=== PATIENT | male | born 1955 | race Caucasian/White ===

== ENCOUNTER → 2017-02-15 | Outpatient (CLI) | payer OTHER ==
--- NOTE | 2017-02-22 15:02 | P.ARTDOP ---
Arterial Doppler LOWER EXTREMITY ARTERIAL DOPPLER: DATE OF SERVICE: 02/15/2017 Reason for study: Claudication. Doppler waveforms: Multiphasic bilaterally throughout. Pulse volume recording: Normal configuration. Pressure gradients: None. Ankle-brachial indices: Greater than 1 bilaterally. Toe pressures: 108 on the right, 108 on the left Impression: Normal study, symptoms are unlikely to be vascular in origin..
== END | disposition home or self-care (01) ==
LOC: RADUSWWP 10:15
PROVIDERS: ATTEND Family Medicine
DX: I73.9 Peripheral vascular disease, unspecified (principal)
CPT/HCPCS: 93923

== ENCOUNTER → 2017-04-10 | Outpatient (CLI) | payer OTHER ==
--- NOTE | 2017-04-10 12:26 | MR ---
EXAMINATION TYPE: MR lumbar spine wo con DATE OF EXAM: 04/10/2017 11:27 AM COMPARISON: NONE HISTORY: intervertebral disc disorder Multiplanar, MultiSpin echo imaging of the lumbar spine was performed. T12-L1: Borderline disc desiccation. Small left paracentral disc bulge without mani herniation. Fora tyrell are patent. No evidence for central stenosis or foraminal encroachment. L1-L2: Normal disc appearance without desiccation. No herniation, protrusion or disc bulging. No ca nal stenosis is present. Foramina are patent bilaterally. L2-L3: Normal disc appearance without desiccation. No herniation, protrusion or disc bulging. No ca nal stenosis is present. Foramina are patent bilaterally. L3-L4: Normal disc appearance without desiccation. No herniation, protrusion or disc bulging. No ca nal stenosis is present. Foramina are patent bilaterally. L4-L5: Mild disc desiccation noted. Mild posterocentral subligamentous disc herniation with mild effa cement of the ventral thecal sac. No evidence for central stenosis. Mild intermittent left lateral re cess stenosis suspected. L5-S1: Normal disc appearance without desiccation. No herniation, protrusion or disc bulging. No ca nal stenosis is present. Foramina are patent bilaterally. Lumbar segments are intact. No paraspinal masses are identified. Conus medullaris has a normal appe arance. IMPRESSION: 1. Small subligamentous disc herniation at L3-4-5 with probable left lateral recess stenosis.
== END | disposition home or self-care (01) ==
LOC: RADMRIMAIN 10:27
PROVIDERS: ATTEND Family Medicine
DX: M51.16 Intervertebral disc disorders with radiculopathy, lumbar region (principal)
CPT/HCPCS: 72148

== ENCOUNTER 2018-03-05 08:36 | Inpatient (IN) | payer OTHER ==
[2018-02-23 09:03] VITALS: BMI 36.6
--- NOTE | 2018-03-04 13:32 | HP ---
HISTORY AND PHYSICAL DATE OF ADMISSION: Surgery scheduled for 03/05/2018 Poncho Iniguez is a 63-year-old patient seen with progressive left knee pain. We discussed consistent with symptomatic osteoarthritis. We discussed treatment options. He elected to proceed with total knee arthroplasty. Consent was obtained. Medical clearance was provided by Dr. Hatfield. PAST MEDICAL HISTORY: Hyperlipidemia and hypertension. PAST SURGICAL HISTORY: Partial amputation right middle finger. MEDICATIONS: Vytorin, [place], Atenolol. ALLERGIES: None reported. SOCIAL HISTORY: Patient smokes occasional cigars. PHYSICAL EXAMINATION: Evaluation of the left knee is range of motion is -2/3 to 115 degrees. There is a mild effusion. Tenderness along the medial and lateral joint lines. Positive lateral Estefany's. Crepitus along the lateral and patellofemoral compartments. Range of motion. Pain with patellofemoral compression. Genu valgum deformity. Distal neurovascular exam intact. Painless rotation of the hip. RADIOGRAPHS: Radiographs of the left knee reveal severe lateral, moderate patellofemoral compartment osteoarthritis. IMPRESSION: 1. Left knee osteoarthritis. 2. Hypertension. 3. Hyperlipidemia. PLAN: Left total knee arthroplasty. Surgery scheduled for 03/05/2018. MMODL / IJN: [id number] /
[~2018-03-05 08:36] MED LIST: ACETAMINOPHEN TAB 500 MG TAB PO ONE; DEXAMETHASONE SOD PHOSPHATE 10 MG/ML 1 ML VIAL IV ONE; LACTATED RINGERS 1,000 ML IV SCH; LIDOCAINE 1% 20 ML VIAL (10MG/ML) FOR IV START INTRADERMA PRN; MELOXICAM 7.5 MG TAB PO ONE; MIDAZOLAM 2 MG/2 ML VIAL IV PRN; MORPHINE SULFATE 4 MG/ML SYRINGE IV PRN; ONDANSETRON 4 MG/2 ML VIAL IVP ONE; TRANEXAMIC ACID 1,000 MG in SODIUM CHLORIDE 0.9% 50 ML IVPB ONE; ceFAZolin IN SWFI 2 GM/20 ML SYRINGE IVP ONE
[2018-03-05] MEDS ORDERED: ROPIVACAINE 246.25 MG, EPINEPHrine 0.5 MG, KETOROLAC 30 MG, cloNIDine HCL/PF 80 MCG, WA... MISCELLANE ONE ×5 (09:32)
[2018-03-05] MEDS ORDERED: LIDOCAINE 1% INJ 10MG/ML (20 ML MDV) ONE ×2 (10:08→10:13)
[2018-03-05] MEDS ORDERED: MIDAZOLAM 2 MG/2 ML VIAL ONE (10:13)
[2018-03-05] MEDS ORDERED: TRANEXAMIC ACID 1,000 MG/10 ML VIAL ONE (10:13)
[2018-03-05] MEDS ORDERED: fentaNYL (PF) 50 MCG/ML 2 ML AMP ONE (10:13)
[2018-03-05] MEDS ORDERED: PROPOFOL 10 MG/ML 20 ML VIAL IV ONE (10:13)
[2018-03-05] MEDS ORDERED: SODIUM CHLORIDE 0.9% 100 ML BAG ONE (10:13)
[2018-03-05] MEDS ORDERED: LACTATED RINGERS 1,000 ML IV ONE (10:47)
[2018-03-05] MEDS ORDERED: ceFAZolin 3,000 MG in SODIUM CHLORIDE 0.9% IRRIGATIO 3,000 ML IRRIGATION ONE (11:15)
[2018-03-05] MEDS ORDERED: ROPIVACAINE 1,100 MG, SODIUM CHLORIDE 0.9% 330 ML MISCELLANE PRN ×2 (11:42)
--- NOTE | 2018-03-05 11:44 | P.ONQ ---
Anesthesiology Proc Note - PNB - Peripheral Nerve Block Performed Left Adductor Canal Infusion Time Out Performed: Yes Procedure Start Time: 09:33 Procedure Stop Time: :54 Indication: Acute Post-Operative Pain, Requested by physician Sedation Type: Sedate with meaningful contact maintained Preparation: Sterile Dressing Position: Supine Catheter: Indwelling Needle Types: On-Q Needle Size: 100mm (4") Needle Gauge: 21 Technique: Ultrasound Injectate: 0.5% Ropivacaine (see comment for volume) (ropi .5% 25cc plus lido 1 % 10cc) Blood Aspirated: No Pain Paresthesia on Injection Noted: No Resistance on Injection: Normal Events: Uneventful and Well Tolerated
[2018-03-05] MEDS ORDERED: HYDROcodone/APAP 7.5-325MG 1 EACH TAB PO PRN (12:38)
[2018-03-05] MEDS ORDERED: HYDROmorphone 0.5 MG/0.5 ML SYRINGE IVP PRN ×3 (12:38)
[2018-03-05] MEDS ORDERED: NALOXONE 0.4 MG/ML 1 ML VIAL IV PRN (12:38)
[2018-03-05] MEDS ORDERED: hydrOXYzine PAMOATE 25 MG CAP PO PRN (12:38)
--- NOTE | 2018-03-05 12:38 | P.OP ---
Date of Procedure: 03/05/18 Preoperative Diagnosis: Left knee osteoarthritis Postoperative Diagnosis: Left knee osteoarthritis Procedure(s) Performed: Left total knee arthroplasty Implants: 1. Microport evolution MP CS/CR size 7 left cemented femoral component 2. Microport evolution MP size 7 left cemented keeled tibial base 3. Microport evolution MP CS polyethylene tibial insert size 7 left 10 mm thickness 4. Microport advance all polyethylene cemented patella 41 mm Anesthesia: regional (Abductor canal catheter), local, spinal Surgeon: Guillermo Alvarado Chief Clinical Dietitian #1: Ludwin Gore Estimated Blood Loss (ml): 100 Pathology: other (Bone) Condition: stable Disposition: PACU Indications for Procedure: 63-year-old patient seen with symptomatic left knee osteoarthritis. After treatment options were discussed, he elected to proceed with total knee arthroplasty. Operative Findings: See description of procedure Description of Procedure: Patient was taken to the operative suite after having and adductor canal catheter placed by the department of anesthesia. Patient underwent a spinal anesthetic by the department of anesthesia. Patient was given preoperative IV intake antibiotics and TXA. A well-padded tourniquet was placed about the [] lower extremity. The lower extremity was then prepped and draped in the normal sterile orthopedic fashion. The extremity was elevated, a tourniquet was insufflated to 350. A standard anterior incision was made sharply through skin. Dissection was taken down through the subcutaneous soft tissues down to the extensor mechanism. A medial arthrotomy was performed, patella was everted and knee was flexed. There was advanced osteoarthritis noted. A proximal tibial cutting guide was positioned. Proximal tibial cut was made. A distal intramedullary femoral cutting guide was positioned, distal femoral cut made. We placed the appropriate sizing guide and selected the appropriate size. A distal 4-in-1 femoral cutting block was positioned, distal femoral cuts were made. We now placed a trial femoral component into position, along with an appropriate size tibial tray and insert. We now took the knee through range of motion and had full extension good flexion and good overall soft tissue balance noted. The patella was everted and a flush cut made with patellar quad tendon. We templated the patella, appropriate drill holes were made. An appropriate trial patella was positioned, knee was taken through full range of motion with the patella tracking very nicely. The trial patella was removed. Drill holes were made through the femoral component. All trial components were removed after marking off the appropriate rotation of the tibia. Retractors were now positioned along the proximal tibia. An appropriate keel punch was made with the appropriate size tibial guide. At this point appropriate size implants were chosen and opened. The joint was irrigated copiously with pulse lavage mechanical irrigation. The deep soft tissues were infiltrated with local analgesic. We mixed antibiotic methylmethacrylate. Once the methyl methacrylate was ready, the tibial component was cemented into place removing any excess methylmethacrylate. The femoral component was cemented into place removing the removing any excess methylmethacrylate. We then inserted the appropriate size polyethylene tibial insert. We made sure that it was locked into position. We took the knee into full extension, and then back in a flexion making sure we had removed any excess methylmethacrylate. The patellar component was then cemented down and secured with clamp. Excess methylmethacrylate removed. We kept the knee in full extension, patellar clamp in position until methylmethacrylate had hardened. Once it had hardened the patellar clamp was removed. The knee was taken through full range of motion. The patella tracked nicely. There was good soft tissue balancing. The tourniquet was now released. Additional hemostasis was achieved via electrocautery. A second gram of TXA was given. The wound was irrigated with pulse lavage mechanical irrigation. The extensor mechanism was repaired with Vicryl. We checked the repair with range of motion and it was stable. The subcutaneous soft tissues were repaired with Vicryl in layers. The skin was approximated with pernio/Dermabond. Sterile dressings were applied followed by loose web roll and Ramy bandage. The patient was transferred to a bed, and taken to recovery in stable and satisfactory condition. Escobar GEORGES assisted with the procedure.
--- NOTE | 2018-03-05 13:05 | XR ---
EXAMINATION TYPE: XR knee limited LT DATE OF EXAM: 03/05/2018 CLINICAL HISTORY: Postoperative evaluation Two views of the left knee are submitted. Identified are changes of total knee arthroplasty with fem oral and tibial components appearing well seated. Postsurgical soft tissue changes are noted. Align ment is anatomic.
[2018-03-05] MEDS: LACTATED RINGERS 1,000 ML IV SCH (14:02)
[2018-03-05] MEDS: traMADol 50 MG TAB PO SCH ×3 (14:08→22:02)
[2018-03-05] MEDS: ceFAZolin IN SWFI 2 GM/20 ML SYRINGE IVP SCH ×2 (16:29→23:44)
--- NOTE | 2018-03-05 18:46 | CONS ---
CONSULTATION DATE OF CONSULTATION: 03/05/2018 REASON FOR CONSULTATION: Medical management requested by Dr. Alvarado. CONSULTATION: This is a pleasant 63-year-old patient of Dr. Hatfield. Chronic stable medical conditions include hypertension, hyperlipidemia, obstructive sleep apnea (uses CPAP) and rosacea. Patient is status post left total knee arthroplasty. Patient has got some pain at the operative site. Patient did get IV Dilaudid and it made her dizzy and lightheaded with some nausea. Denies any cardiac history. Sitting up. Did eat some dinner. REVIEW OF SYSTEMS: CONSTITUTIONAL: None. HEENT: None. RESPIRATORY: None. CARDIOVASCULAR: None. GASTROINTESTINAL: As above. GENITOURINARY: None. MUSCULOSKELETAL: Arthritic pain in the joints. DERMATOLOGICAL: None. HEMATOLOGICAL: None. LYMPHATICS: None. PSYCHIATRY: None. NEUROLOGICAL: None. PAST MEDICAL HISTORY: 1. Hypertension. 2. Hyperlipidemia. 3. Osteoarthritis. 4. Obstructive sleep apnea. 5. Rosacea. 6. Colon polyps. PAST SURGICAL HISTORY: 1. Cardiac catheterization. 2. Right knee surgery. 3. Right hand surgery, distal middle amputation. 4. Colonoscopy. SOCIAL HISTORY: Patient smokes a cigar every other day for maybe 5 to 6 years. Does marijuana 2 or 3 times a week. 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 . FAMILY HISTORY: DVT, cancer. HOME MEDICATIONS: 1. Metrocream topical b.i.d. 2. Men's multivitamin 1 tablet p.o. daily. 3. Warners 10 one tablet b.i.d. p.r.n. 4. Neurontin 300 mg p.o. t.i.d. 5. Vytorin 10/40 one tablet at bedtime. 6. Voltaren 75 mg p.o. b.i.d. 7. Vitamin D3 5000 units p.o. daily. 8. Ocuvite Adult 50 one tablet p.o. daily. 9. Tenormin 25 mg at bedtime. ALLERGIES: NONE. PHYSICAL EXAMINATION: Temperature 97.6, pulse 51, respiration 16, blood pressure 138/73, pulse ox 98% on room air. GENERAL APPEARANCE: Well built; BMI 36.6. Sitting up in a chair. Awake. EYES: Pupils equal. Conjunctivae normal. HEENT: External appearance of nose and ears normal. Oral cavity normal. NECK: JVD not raised. Mass not palpable. RESPIRATORY: Effort normal. LUNGS: Fair air entry. CARDIOVASCULAR: First and second sounds normal. No edema. ABDOMEN: Soft, non-tender. Liver and spleen not palpable. LYMPHATIC: No lymph node palpable in neck or axillae. PSYCHIATRY: Alert and oriented x3. Mood and affect normal. EXTREMITIES: Dressing on the left knee. DERMATOLOGICAL: Evidence of rosacea on the face. INVESTIGATIONS: None from today. ASSESSMENT: 1. Left total knee arthroplasty. 2. Obesity with body mass index of 36.6. 3. Hypertension. 4. Hyperlipidemia. 5. Primary osteoarthritis. 6. Obstructive sleep apnea; uses CPAP. 7. Rosacea. PLAN: Home medications are resumed. DVT prophylaxis per Dr. Alvarado, who has the patient on Lovenox. Pain control is in place. Will have a dietitian see the patient for weight loss measures and patient should use his CPAP in the home setting. Care was discussed with the patient. Questions were answered. Thank you, Dr. Alvarado. MARK / MARCEN: [id number] /
[2018-03-05] MEDS: ATORVASTATIN 20 MG TAB PO SCH (20:42)
[2018-03-05] MEDS: ATENOLOL 25 MG TAB PO SCH (20:42)
[2018-03-05] MEDS: HYDROcodone/APAP 7.5-325MG 1 EACH TAB PO PRN (20:43)
[2018-03-05] MEDS: GABAPENTIN 300 MG CAP PO SCH (20:43)
[2018-03-05] MEDS: SENNOSIDES-DOCUSATE SODIUM 1 EACH TAB PO SCH (20:46)
[2018-03-05] MEDS: EZETIMIBE 10 MG TAB PO SCH (20:46)
[2018-03-06] MEDS: HYDROcodone/APAP 7.5-325MG 1 EACH TAB PO PRN ×2 (01:48→07:17)
[2018-03-06] MEDS: LACTATED RINGERS 1,000 ML IV SCH ×2 (02:06→17:12)
[2018-03-06] MEDS: ONDANSETRON 4 MG/2 ML VIAL IVP PRN (07:17)
[2018-03-06] MEDS: ENOXAPARIN 30 MG/0.3 ML SYRINGE SQ SCH ×2 (07:18→22:18)
[2018-03-06] MEDS: FAMOTIDINE 20 MG TAB PO SCH (07:21)
[2018-03-06] MEDS: GABAPENTIN 300 MG CAP PO SCH ×3 (07:22→22:17)
[2018-03-06] MEDS: MELOXICAM 7.5 MG TAB PO SCH (07:22)
--- NOTE | 2018-03-06 07:27 | P.PN ---
Progress Note - Text 03/06 756 62-year-old male status post left knee replacement by Dr. Alvarado. Patient has On-Q pump for postop pain control with the solution running at 10 mL an hour , his pain is poorly controlled he was given IV narcotics which she did not tolerate well. Complains of nausea vomiting. I saw him this morning and increases rate to 12 mL an hour.
[2018-03-06 08:19] LABS: Basophils % (A) 0 %; Eosinophils % (A) 0 %; HCT 38.8 % (39.0-53.0); HGB 13.2 gm/dL (13.0-17.5); Lymphocytes # (A) 1.1 k/uL (1.0-4.8); Lymphocytes % (A) 8 %; MCH 33.2 pg (25.0-35.0); MCV 97.8 fL (80.0-100.0); Monocytes # (A) 0.7 k/uL (0-1.0); Monocytes % (A) 6 %; Neutrophils % (A) 85 %; Platelet Count 258 k/uL (150-450); RBC 3.97 m/uL (4.30-5.90); RDW 12.2 % (11.5-15.5)
[2018-03-06] MEDS: traMADol 50 MG TAB PO SCH ×4 (09:12→22:16)
[2018-03-06] MEDS ORDERED: HYDROcodone/APAP 10-325MG 1 EACH TAB PO PRN (11:31)
[2018-03-06] MEDS: MULTIVITAMINS, THERA 1 EACH TAB PO SCH (12:05)
[2018-03-06] MEDS: HYDROcodone/APAP 10-325MG 1 EACH TAB PO PRN ×2 (12:05→19:24)
--- NOTE | 2018-03-06 13:54 | P.PN ---
Subjective Progress Note Date: 03/06/18 Principal diagnosis: Status post left total knee arthroplasty Patient is seen today resting in his hospital bed, he appears comfortable. He admits to some increasing pain after walking utilization of CPM machine. He is urinating on his own. He denies any headaches, lightheadedness, chest pain or shortness of breath. Objective - Vital Signs Vital signs: Vital Signs Temp 97.8 F 03/06/18 07:20 Pulse 60 03/06/18 07:20 Resp 18 03/06/18 02:09 BP 118/68 03/06/18 07:20 Pulse Ox 98 03/06/18 07:20 Intake & Output 03/05/18 03/06/18 03/06/18 18:59 06:59 18:59 Intake Total 1038 1420 Output Total 650 Balance 388 1420 Weight 115.666 kg 115.666 kg Intake: IV 801 Intake, IV Titration 920 Amount Lactated Ringers 1,000 ml 920 @ 80 mls/hr IV .[id number] DANIELLE Rx#:[id number] Oral 237 500 Output: Urine 550 Estimated Blood Loss 100 Other: Voiding Method Urinal Toilet Toilet # Voids 1 3 1 - Exam Left lower extremity: Incision is clean, dry, and intact. The prineo tape is in good condition. There is minimal soft tissue swelling and ecchymosis surrounding the medial and lateral aspects of the incision. Calf is soft, no tenderness with palpation. Plantar flexion, dorsiflexion, EHL, FHL are intact. Sensory exam to light touch throughout the extremity is intact, dorsal pedis pulses 2+. - Labs CBC & Chem 7: 03/06/18 07:51 Labs: Abnormal Lab Results - Last 24 Hours (Table) 03/06/18 Range/Units 07:51 WBC 13.0 H (3.8-10.6) k/uL RBC 3.97 L (4.30-5.90) m/uL Hct 38.8 L (39.0-53.0) % Neutrophils # 11.0 H (1.3-7.7) k/uL Assessment and Plan Plan: Assessment: 1. Postop day #1 status post left total knee arthroplasty Plan: Pain control, I did adjust the oral medications Continue with physical therapy Daily dressing changes/ice and elevate Encourage incentive spirometer GI and DVT prophylaxis, continue subcu medication medical recommendations discharge planning: Patient likely be discharged home tomorrow Time with Patient: Less than 30
[2018-03-06] MEDS: EZETIMIBE 10 MG TAB PO SCH (22:17)
[2018-03-06] MEDS: SENNOSIDES-DOCUSATE SODIUM 1 EACH TAB PO SCH (22:17)
[2018-03-06] MEDS: ATENOLOL 25 MG TAB PO SCH (22:17)
[2018-03-06] MEDS: ATORVASTATIN 20 MG TAB PO SCH (22:18)
--- NOTE | 2018-03-06 23:03 | PN ---
PROGRESS NOTE DATE OF SERVICE: March 06, 2018 PRESENTING COMPLAINT: Knee surgery. INTERVAL HISTORY: Patient status post knee surgery. Still trouble with some pain. Saw this patient this morning. Medications were changed by Orthopedics. Otherwise, patient tolerating some diet. Family is present. No chest pain or short of breath. REVIEW OF SYSTEMS: Done for constitutional, cardiovascular, GI and pulmonary, relevant findings as above. CURRENT MEDICATIONS: Reviewed. EXAMINATION: Temperature 97.8, pulse 60, respiration 16, blood pressure 108/68, pulse ox 98% on room air. General appearance: Lying in bed, slightly uncomfortable. Eyes: Pupils are equal. Conjunctivae normal. HEENT: External appearance of nose and ears normal. Oral cavity normal. Neck: JVD not raised. Mass not palpable. Respiratory effort normal. Lungs fair entry. Cardiovascular 1st and 2nd sounds no edema. ABDOMEN: Soft, nontender. Liver and spleen not palpable. Psychiatry: Alert and oriented x3. Mood and affect normal. INVESTIGATIONS: White count 13, hemoglobin 13.2. ASSESSMENT: 1. Left total knee arthroplasty. 2. Obesity; BMI 36.6. 3. Hypertension essential. 4. Hyperlipidemia. 5. Primary osteoarthritis. 6. Obstructive sleep apnea uses CPAP. 7. Rosacea. 8. Leukocytosis, mild, probably reactive. 9. The patient incision healing well per Orthopedics. PLAN: Care was discussed with the patient. Continue current medication and treatment plan. MMODL / IJN: [id number] /
[2018-03-07] MEDS: HYDROcodone/APAP 10-325MG 1 EACH TAB PO PRN ×2 (01:38→07:57)
[2018-03-07] MEDS: LACTATED RINGERS 1,000 ML IV SCH ×2 (05:20→12:58)
[2018-03-07] MEDS: ONDANSETRON 4 MG/2 ML VIAL IVP PRN (08:52)
[2018-03-07] MEDS: MELOXICAM 7.5 MG TAB PO SCH (08:55)
[2018-03-07] MEDS: ENOXAPARIN 30 MG/0.3 ML SYRINGE SQ SCH (08:55)
[2018-03-07] MEDS: FAMOTIDINE 20 MG TAB PO SCH (08:55)
[2018-03-07] MEDS: GABAPENTIN 300 MG CAP PO SCH ×2 (08:55→15:27)
[2018-03-07] MEDS: traMADol 50 MG TAB PO SCH ×2 (08:55→12:49)
--- NOTE | 2018-03-07 10:16 | P.PN ---
Subjective Progress Note Date: 03/07/18 Principal diagnosis: Status post left total knee arthroplasty Patient is seen today resting in his hospital bed, he appears comfortable. His pain is improved. He is urinating on his own. He denies any headaches, lightheadedness, chest pain or shortness of breath. Objective - Vital Signs Vital signs: Vital Signs Temp 97.8 F 03/07/18 07:33 Pulse 66 03/07/18 07:33 Resp 16 03/07/18 07:33 BP 148/78 03/07/18 07:33 Pulse Ox 98 03/07/18 07:33 Intake & Output 03/06/18 03/07/18 03/07/18 18:59 06:59 18:59 Intake Total 540 Output Total 740 Balance -200 Weight 115.666 kg Intake: Oral 540 Output: Urine 740 Other: Voiding Method Toilet Toilet Toilet Urinal Urinal # Voids 1 3 # Bowel Movements 0 - Exam Left lower extremity: Incision is clean, dry, and intact. The prineo tape is in good condition. There is minimal soft tissue swelling and ecchymosis surrounding the medial and lateral aspects of the incision. Calf is soft, no tenderness with palpation. Plantar flexion, dorsiflexion, EHL, FHL are intact. Sensory exam to light touch throughout the extremity is intact, dorsal pedis pulses 2+. - Labs CBC & Chem 7: 03/06/18 07:51 Assessment and Plan Plan: Assessment: 1. Postop day #2 status post left total knee arthroplasty Plan: Pain control, continue oral medications Continue with physical therapy Daily dressing changes/ice and elevate Encourage incentive spirometer GI and DVT prophylaxis, aspirin 325 mg twice a day medical recommendations Discharge planning: Patient will be discharged home today Time with Patient: Less than 30
[2018-03-07] MEDS: MULTIVITAMINS, THERA 1 EACH TAB PO SCH (12:49)
[2018-03-07] MEDS ORDERED: oxyCODONE-APAP 5-325MG 1 EACH TAB PO STA (15:07)
[2018-03-07 15:24] VITALS: BP 133/76; PULSE 78; RESP 18; TEMP 98.2
--- NOTE | 2018-03-07 19:13 | PN ---
PROGRESS NOTE DATE OF SERVICE: March 07, 2018. PRESENTING COMPLAINT: Knee surgery. INTERVAL HISTORY: Patient is status post knee surgery. Pain is still present though better. Tolerating a diet. No nausea, vomiting. Did work with physical therapy. is present. REVIEW OF SYSTEMS: Done for constitutional, cardiovascular, GI, pulmonary, musculoskeletal; relevant findings as above. CURRENT MEDICATIONS: Reviewed. PHYSICAL EXAMINATION: VITAL SIGNS: Temperature 97.8, pulse 66, respirations 16, blood pressure 148/78, pulse ox 98% on room air. GENERAL APPEARANCE: Lying in bed, comfortable. EYES: Pupils equal. Conjunctivae normal. HEENT: External appearance of nose and ears normal. Oral cavity normal. NECK: JVD not raised. Mass not palpable. RESPIRATORY: Effort lungs are clear. CARDIOVASCULAR: 1st and 2nd sounds normal. No edema. ABDOMEN: Soft, nontender. Liver and spleen not palpable. PSYCHIATRY: Alert and oriented x3. Mood and affect normal. INVESTIGATIONS: No blood work from today. ASSESSMENT: 1. Left total knee arthroplasty. 2. Obesity; BMI 36.6. 3. Essential hypertension. 4. Hyperlipidemia. 5. Primary osteoarthritis. 6. Obstructive sleep apnea uses CPAP. 7. Rosacea. PLAN: Patient doing well. Continue current medication and treatment plan. Care was discussed with the patient and at the bedside. MMODL / IJN: [id number] /
== END 2018-03-07 17:52 | disposition home health service (06) | DRG 470 ==
LOC: 2ORMAIN 08:36 → 3SUR 12:36
PROVIDERS: ADMIT Orthopaedic Surgery; ATTEND Orthopaedic Surgery
PROC: 0SRD0J9 Replacement of Left Knee Joint with Synthetic Substitute, Cemented, Open Approach (ICD-10-PCS; principal; 2018-03-05 10:15)
DX: M17.12 Unilateral primary osteoarthritis, left knee (principal); D72.829 Elevated white blood cell count, unspecified; E66.9 Obesity, unspecified; E78.5 Hyperlipidemia, unspecified; F17.290 Nicotine dependence, other tobacco product, uncomplicated; G47.33 Obstructive sleep apnea (adult) (pediatric); I10 Essential (primary) hypertension; L71.9 Rosacea, unspecified; R11.2 Nausea with vomiting, unspecified; R42 Dizziness and giddiness; T40.2X5A Adverse effect of other opioids, initial encounter; G56.00 Carpal tunnel syndrome, unspecified upper limb; E29.1 Testicular hypofunction; E55.9 Vitamin D deficiency, unspecified; E78.00 Pure hypercholesterolemia, unspecified; I25.10 Atherosclerotic heart disease of native coronary artery without angina pectoris; K57.30 Diverticulosis of large intestine without perforation or abscess without bleeding; F41.9 Anxiety disorder, unspecified; I25.9 Chronic ischemic heart disease, unspecified; M54.9 Dorsalgia, unspecified; Z68.36 Body mass index [BMI] 36.0-36.9, adult; Z86.010 Personal history of colon polyps; Z79.899 Other long term (current) drug therapy; Z83.3 Family history of diabetes mellitus; Z82.49 Family history of ischemic heart disease and other diseases of the circulatory system; Y92.239 Unspecified place in hospital as the place of occurrence of the external cause
CPT/HCPCS: 85025; 88300

== ENCOUNTER 2018-05-07 10:30 | Day surgery (SDC) | payer OTHER ==
[2018-05-02 11:16] VITALS: BMI 36.6
--- NOTE | 2018-05-06 13:28 | HP ---
HISTORY AND PHYSICAL SURGERY: 05/07/2018 Poncho Iniguez is a 63-year-old patient seen with persistent left knee stiffness/adhesions after previously having undergone total knee arthroplasty. We discussed treatment options. He elected to proceed with manipulation under anesthesia with steroid injection. Consent was obtained. PAST MEDICAL HISTORY: Hypertension, hyperlipidemia. PAST SURGICAL HISTORY: Left total knee arthroplasty. MEDICATIONS: Gabapentin, [place], Vytorin, atenolol. ALLERGIES: None reported. SOCIAL HISTORY: Patient occasionally smokes a cigar. PHYSICAL EXAMINATION: Physical evaluation left knee: His anterior incision is well healed. His range of motion is -5/6 to 120 degrees. There is some weakness with quadriceps strength. Ligaments are stable. Distal neurovascular exam intact. Hip rotation without pain. RADIOGRAPHS: Radiographs of the left knee revealed a stable appearing total knee arthroplasty. IMPRESSION: 1. Left knee adhesions/stiffness. 2. Left total knee arthroplasty. 3. Hypertension. 4. Hyperlipidemia. PLAN: Manipulation under anesthesia left knee with steroid injection. MMODL / IJN: [id number] /
[~2018-05-07 10:30] MED LIST changes: -ACETAMINOPHEN TAB 500 MG TAB PO ONE; -DEXAMETHASONE SOD PHOSPHATE 10 MG/ML 1 ML VIAL IV ONE; -MELOXICAM 7.5 MG TAB PO ONE; -ONDANSETRON 4 MG/2 ML VIAL IVP ONE; -TRANEXAMIC ACID 1,000 MG in SODIUM CHLORIDE 0.9% 50 ML IVPB ONE
[2018-05-07 10:48] VITALS: TEMP 98.1
[2018-05-07] MEDS ORDERED: LIDOCAINE 1% 20 ML VIAL (10MG/ML) FOR IV START INTRADERMA ONE (10:48)
[2018-05-07] MEDS ORDERED: LACTATED RINGERS 1,000 ML IV ONE (10:48)
[2018-05-07] MEDS ORDERED: ONDANSETRON 4 MG/2 ML VIAL IVP ONE (11:02)
[2018-05-07] MEDS ORDERED: DEXAMETHASONE SOD PHOS (MDV) 100 MG/10 ML VIAL IVP ONE (11:02)
[2018-05-07] MEDS ORDERED: LIDOCAINE 1% INJ 10MG/ML (20 ML MDV) ONE (12:00)
[2018-05-07] MEDS ORDERED: PROPOFOL 10 MG/ML 20 ML VIAL IV ONE (12:00)
[2018-05-07] MEDS ORDERED: ceFAZolin IN SWFI 2 GM/20 ML SYRINGE IVP ONE (12:02)
--- NOTE | 2018-05-07 12:21 | P.OP ---
Date of Procedure: 05/07/18 Preoperative Diagnosis: Left knee adhesions/stiffness status post total knee arthroplasty Postoperative Diagnosis: Left knee adhesions/stiffness status post total knee arthroplasty Procedure(s) Performed: Manipulation under anesthesia left knee with steroid injection Anesthesia: SHAGGY local Surgeon: Guillermo Alvarado Estimated Blood Loss (ml): 0 Pathology: none sent Condition: stable Disposition: PACU Indications for Procedure: 63-year-old patient seen with left knee adhesions/stiffness after previously having undergone total knee arthroplasty. I discussed manipulation under anesthesia with steroid injection, patient was agreeable and consent was obtained. Operative Findings: see description of procedure Description of Procedure: Patient was taken to a monitored anesthesia care. The patient underwent a general anesthetic by the primary anesthesia. I now performed a manipulation of the left knee taken through a full range of motion and achieving full extension and 135 of flexion with audible tearing of the adhesions during the manipulation. I now prepped and draped the superior lateral aspect of the left knee and inject a solution of 1 mL Depo-Medrol and 3 mL percent plain Marcaine. I now took the knee back through range of motion. I now applied a sterile Band-Aid. The patient was awakened having tolerated the procedure well.
[2018-05-07] MEDS: fentaNYL (PF) 50 MCG/ML 2 ML AMP IV PRN ×2 (12:32→12:36)
[2018-05-07 12:49] VITALS: RESP 16
[2018-05-07] MEDS ORDERED: HYDROcodone/APAP 10-325MG 1 EACH TAB PO ONE (13:27)
[2018-05-07 13:41] VITALS: BP 126/76; PULSE 51
== END 2018-05-07 14:22 | disposition home or self-care (01) ==
LOC: OR 10:30
PROVIDERS: ATTEND Orthopaedic Surgery
DX: M23.8X2 Other internal derangements of left knee (principal); Z96.652 Presence of left artificial knee joint; I10 Essential (primary) hypertension; E78.5 Hyperlipidemia, unspecified; Z79.891 Long term (current) use of opiate analgesic; Z79.899 Other long term (current) drug therapy; F17.290 Nicotine dependence, other tobacco product, uncomplicated; G47.33 Obstructive sleep apnea (adult) (pediatric); Z79.82 Long term (current) use of aspirin; Z88.5 Allergy status to narcotic agent
CPT/HCPCS: 27570; J2405; J3010; J1100; J0690

== ENCOUNTER → 2020-05-14 | Outpatient (CLI) | payer MEDICARE, OTHER ==
--- NOTE | 2020-05-14 22:23 | SFUN ---
SLEEP CENTER FOLLOW UP NOTE DATE OF SERVICE: 05/14/2020 This patient is a 65-year-old gentleman who has been followed in Sleep Center for treatment of obstructive sleep apnea-hypopnea syndrome. The patient continues to use his CPAP equipment every night. Sometimes he wakes up from sleep while on the machine. [place] Sleepiness Scale today is zero. I checked his BiPAP unit. BiPAP pressure is 18/14. Usage is 22/30 nights for more than 4 hours. Average usage 8.1 hours. Leak is high at 40 L/minute. Apnea-hypopnea index 3.2. MEDICATIONS: Vytorin, atenolol. PHYSICAL EXAMINATION: GENERAL: A pleasant gentleman without distress. VITAL SIGNS: BP 107/63, HR 48, RR 16, height 5 feet 9-1/2 inches, weight 257, body mass index 37.4, temperature 97.5, oxygen saturation at room air 99%. HEENT: PERRLA, EOMI. Evaluation of oropharynx showed tongue protrudes midline. Low position of soft palate. NECK: Supple. No JVD. Thyroid is not palpable. Neck measures 19 inches in circumference. LUNGS: Clear to percussion and to auscultation. Good air exchange. No wheezing or rhonchi. HEART: S1, S2 regular. No murmurs, gallops or rubs. ABDOMEN: Obese. EXTREMITIES: No clubbing or cyanosis. PLANT BREEDER: Awake, alert, and oriented X3. Cranial nerves 2 to 7 intact. There is no fasciculation or atrophy. noted. No focal deficits observed. IMPRESSION: 1. Obstructive sleep apnea-hypopnea syndrome. The patient demonstrated good compliance with treatment, benefitting from treatment. 2. Baseline sleep study is not available. It was done in 2000. 3. Obesity. 4. Hypertension. 5. Knee arthritis. PLAN: We will repeat a sleep study. The patient prefers a sleep study in the office because again results of the baseline sleep study which was done in 2000, according to patient, are not available, and we need to repeat baseline study because of insurance requirements, to obtain for patient all necessary supplies. 1. Patient will continue to use PAP equipment every night for the whole night. 2. Sleep hygiene with regular time in bed for at least 7-1/2 to 8 hours. 3. Precautions related to driving. No driving if feeling sleepiness. 4. I will maintain all necessary prescription for PAP supplies including mask, tube, filters. 5. Watching weight. 6. No driving if feeling sleepiness. 7. Follow-up visit in 6 months or earlier if patient has any problems. Thank you very much for allowing me to participate in the management of your patient. Sincerely, Gonzalez Dwyer MD, PhD, FAASM Diplomat of [place] [employer] [place] [employer] Research Program Manager of [facility] [place] MMODL / IJN: [id number] /
== END | disposition home or self-care (01) ==
LOC: SLEEP 11:00
PROVIDERS: ATTEND Internal Medicine
DX: G47.33 Obstructive sleep apnea (adult) (pediatric) (principal); I10 Essential (primary) hypertension; E66.9 Obesity, unspecified; M17.10 Unilateral primary osteoarthritis, unspecified knee; Z99.89 Dependence on other enabling machines and devices
CPT/HCPCS: 99211

== ENCOUNTER → 2022-06-15 | Outpatient (CLI) | payer MEDICARE ==
--- NOTE | 2022-06-15 14:15 | P.PN ---
Subjective DATE: 06/15/2022 FOLLOW UP VISIT. Patient with obstructive sleep apnea hypopnea syndrome return to sleep center for follow-up visit. Information from previous visit have been reviewed. Patient BIPAP equipment sometimes stop working. He has to use his extremely old BiPAP unit. [place] sleepiness scale is 0. I checked information from PAP unit. PAP unit pressure was 18/14 cm H2O. Usage is 100 % for more then 4 hours, average 8 hours per night 4 months ago. Leak is slightly increased to 36.1 l/m. MEDICATIONS:1. Vytorin 2. Atenolol 25 mg once a day 3. Hydrocodon 325/10 twice a day During physical exam: GENERAL: A pleasant patient without any distress. VITAL SIGNS: BP 136/80, HR 48, RR 16, weight 254.0, temperature 96.8, oxygen saturation at room air 97 % . HEENT: PERRLA, EOMI.low position of soft palate . NECK: Supple. No JVD. LUNGS: Clear to percussion and to auscultation. Good air exchange. No wheezing or rhonchi. HEART: S1, S2 regular. ABDOMEN: Soft and nontender. Obese EXTREMITIES: No clubbing or cyanosis. ELECTRIC TRACK SWITCH MAINTAINER: Awake, alert, and oriented x3. No focal deficit. Impressions: 1. Obstructive sleep apnea-hypopnea syndrome in extremely severe range. Apnea hypopnea index 90.3. BiPAP unit is broken.. 2. Obesity. 3. Hypertension. 4.Arthritis. Plan: 1. Pap titration for correction of respiratory abnormalities sleep. To start with CPAP, to change to BiPAP if necessary. Patient should receive new BiPAP unit after titration. 2.Follow up visit in one months after getting new BiPAP equipment. 3. I will maintain prescription for PAP supplies including mask, tube, filters. 4. Watching and losing weight. 5. Sleep hygiene with regular time in bed for at least 8 hours. 6. Precautions related to driving. No driving if feel any sleepiness. Thank you very much for allowing me to participate in the management of your patient. Gonzalez Dwyer MD, PhD, FAASM. Diplomat of [place] [employer] Medicine, Sleep Medicine Board by [place] [employer] Medicine Graphic Pre Press Trades Worker of [facility] [place]
== END ==
LOC: SLEEP 13:12
PROVIDERS: ATTEND Internal Medicine
DX: G47.33 Obstructive sleep apnea (adult) (pediatric) (principal); E66.9 Obesity, unspecified; Z99.89 Dependence on other enabling machines and devices; I10 Essential (primary) hypertension; M19.90 Unspecified osteoarthritis, unspecified site; Z88.5 Allergy status to narcotic agent; F17.200 Nicotine dependence, unspecified, uncomplicated
CPT/HCPCS: 99212

== ENCOUNTER 2022-08-12 19:38 | Emergency (ER) | payer MEDICARE ==
[2022-08-12 19:53] VITALS: TEMP 97.7
[2022-08-12 20:28] LABS: Basophils # (A) 0.1 k/uL (0-0.2); Basophils % (A) 1 %; Eosinophils # (A) 0.2 k/uL (0-0.7); Eosinophils % (A) 2 %; HCT 44.2 % (39.0-53.0); HGB 15.3 gm/dL (13.0-17.5); Lymphocytes # (A) 1.5 k/uL (1.0-4.8); Lymphocytes % (A) 16 %; MCH 33.3 pg (25.0-35.0); MCHC 34.7 g/dL (31.0-37.0); Mean Platelet Volume 7.7; Monocytes # (A) 0.4 k/uL (0-1.0); Monocytes % (A) 4 %; Neutrophils % (A) 75 %; Platelet Count 274 k/uL (150-450); RBC 4.61 m/uL (4.30-5.90); RDW 11.8 % (11.5-15.5); WBC 9.3 k/uL (3.8-10.6)
[2022-08-12 20:36] LABS: INR 0.9 (<1.2); Partial Thromboplastin Time 25.9 sec (22.0-30.0); Prothrombin Time 10.4 sec (9.0-12.0)
[2022-08-12 20:37] LABS: Albumin 4.4 g/dL (3.5-5.0); Calcium 9.3 mg/dL (8.4-10.2); Potassium 4.6 mmol/L (3.5-5.1); Total Bilirubin 0.5 mg/dL (0.2-1.3)
--- NOTE | 2022-08-12 20:49 | XR ---
EXAMINATION TYPE: XR chest 1V portable DATE OF EXAM: 08/12/2022 COMPARISON: NONE HISTORY: Short of breath TECHNIQUE: FINDINGS: Heart is normal. Lungs are clear of infiltrate. No heart failure. There are no hilar masses . The bony thorax is intact. IMPRESSION: No active cardiopulmonary disease. Normal heart.
--- NOTE | 2022-08-12 20:50 | XR ---
EXAMINATION TYPE: XR hand complete LT DATE OF EXAM: 08/12/2022 COMPARISON: None HISTORY: Pain and swelling TECHNIQUE: 3 views FINDINGS: The metacarpals are intact. There is small calcification on the lateral aspect of the DIP j oint of the little finger that could be a tiny chip fracture. No dislocation. Joint spaces are fairly normal. The carpal bones are intact. IMPRESSION: Possible tiny chip fracture of the head of the middle phalanx of the little finger.
--- NOTE | 2022-08-12 23:03 | ED ---
Fall HPI - General Chief Complaint: Fall Stated Complaint: SOB/ Fall rib pain Time Seen by Provider: 08/12/22 23:01 Source: patient, RN notes reviewed, old records reviewed Mode of arrival: ambulatory - History of Present Illness Initial Comments: This is a 67-year-old male for fall from standing. Patient tripped over what bile in do would like her. Patient of that left rib cage metal having difficulty pain when he takes a deep breath difficult with movement or pain of his left hand as well. Patient has no other injuries noted no loss of consciousness denies drugs or alcohol today. 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 Fall Witnessed: yes, by family Place Fall Occurred: home Loss of Consciousness: none Prolonged Down Time?: no Symptoms Prior to Fall: none Location: chest Location - Extremities: Left: Hand Severity: severe Severity scale (1-10): 8 Quality: sharp, stabbing Context: tripped/slipped Associated Symptoms: denies - Related Data Home Medications Medication Instructions Recorded Confirmed Ezetimibe/Simvastatin [Vytorin 1 tab PO HS 05/20/14 05/02/18 10-40 mg Tablet] Gabapentin [Neurontin] 300 mg PO TID 05/20/14 05/02/18 HYDROcodone/APAP 10-325MG [[place] 1 tab PO BID PRN 05/20/14 05/02/18 10] atenoloL [Tenormin] 25 mg PO HS 05/20/14 05/02/18 C,E,Zinc,Copper 11/Wxuum5e/Lut 1 tab PO DAILY 02/23/18 05/02/18 [Ocuvite Adult 50 Plus Softgel] Cholecalciferol [Vitamin D3] 5,000 unit PO DAILY 02/23/18 05/02/18 Diclofenac Sodium [Voltaren] 75 mg PO BID 02/23/18 05/02/18 Multivitamin [Men's Multi-Vitamin] 1 tab PO DAILY 02/23/18 05/02/18 RX: metroNIDAZOLE 0.75% CREAM 1 applic TOPICAL BID 02/23/18 05/02/18 [Metrocream 0.75%] RX: Aspirin 325 mg PO DAILY 05/02/18 05/02/18 Previous Rx's Medication Instructions Recorded Docusate [Colace] 100 mg PO DAILY #30 capsule 03/07/18 Allergies Allergy/AdvReac Type Severity Reaction Status Date / Time hydromorphone [From Dilaudid] AdvReac drop in Verified 08/12/22 19:48 b/p,nausea Review of Systems ROS Statement: Those systems with pertinent positive or pertinent negative responses have been documented in the HPI. ROS Other: All systems not noted in ROS Statement are negative. Past Medical History Past Medical History: Hyperlipidemia, Hypertension, Osteoarthritis (OA), Skin Disorder, Sleep Apnea/CPAP/BIPAP Additional Past Medical History / Comment(s): hx colon polyps, USES CPAP, ROSACEA History of Any Multi-Drug Resistant Organisms: None Reported Past Surgical History: Heart Catheterization, Joint Replacement, Orthopedic Surgery Additional Past Surgical History / Comment(s): RT knee surg., right hand surg- DISTAL MIDDLE AMPUTATION, COLONOSCOPY,lt total knee Past Anesthesia/Blood Transfusion Reactions: No Reported Reaction Past Psychological History: No Psychological Hx Reported Smoking Status: Never smoker Past Alcohol Use History: Occasional Past Drug Use History: Marijuana - Past Family History Father Family Medical History: Cancer, Deep Vein Thrombosis (DVT) Sister(s) Family Medical History: Cancer Brother(s) Family Medical History: Cancer General Exam Limitations: no limitations General appearance: alert, in no apparent distress Head exam: Present: atraumatic, normocephalic, normal inspection Eye exam: Present: normal appearance, PERRL, EOMI. Absent: scleral icterus, conjunctival injection, periorbital swelling ENT exam: Present: normal exam, mucous membranes moist Neck exam: Present: normal inspection. Absent: tenderness, meningismus, lymphadenopathy Respiratory exam: Present: normal lung sounds bilaterally. Absent: respiratory distress, wheezes, rales, rhonchi, stridor Cardiovascular Exam: Present: regular rate, normal rhythm, normal heart sounds, other (left chest wall pain). Absent: systolic murmur, diastolic murmur, rubs, gallop, clicks GI/Abdominal exam: Present: soft, normal bowel sounds. Absent: distended, tenderness, guarding, rebound, rigid Extremities exam: Present: normal inspection, full ROM, normal capillary refill. Absent: tenderness, pedal edema, joint swelling, calf tenderness Back exam: Present: normal inspection Neurological exam: Present: alert, oriented X3, CN II-XII intact Psychiatric exam: Present: normal affect, normal mood Skin exam: Present: warm, dry, intact, normal color. Absent: rash Course Vital Signs 08/12/22 08/12/22 19:48 23:10 Temperature 97.7 F Pulse Rate 54 L 51 L Respiratory 18 16 Rate Blood Pressure 148/73 144/86 O2 Sat by Pulse 97 99 Oximetry - Reevaluation(s) Reevaluation #1: 08/13/22 00:10 medical record is reviewed Reevaluation #2: 08/13/22 00:10 patient informed of results and questions answered Reevaluation #3: 08/13/22 00:10 pain is controlled Medical Decision Making - Lab Data Result diagrams: 08/12/22 20:03 08/12/22 20:03 Lab Results 08/12/22 08/12/22 08/12/22 Range/Units 20:03 20:03 20:03 WBC 9.3 (3.8-10.6) k/uL RBC 4.61 (4.30-5.90) m/uL Hgb 15.3 (13.0-17.5) gm/dL Hct 44.2 (39.0-53.0) % MCV 96.0 (80.0-100.0) fL MCH 33.3 (25.0-35.0) pg MCHC 34.7 (31.0-37.0) g/dL RDW 11.8 (11.5-15.5) % Plt Count 274 (150-450) k/uL MPV 7.7 Neutrophils % 75 % Lymphocytes % 16 % Monocytes % 4 % Eosinophils % 2 % Basophils % 1 % Neutrophils # 7.0 (1.3-7.7) k/uL Lymphocytes # 1.5 (1.0-4.8) k/uL Monocytes # 0.4 (0-1.0) k/uL Eosinophils # 0.2 (0-0.7) k/uL Basophils # 0.1 (0-0.2) k/uL PT 10.4 (9.0-12.0) sec INR 0.9 (<1.2) APTT 25.9 (22.0-30.0) sec Sodium 139 (137-145) mmol/L Potassium 4.6 (3.5-5.1) mmol/L Chloride 101 (98-107) mmol/L Carbon Dioxide 28 (22-30) mmol/L Anion Gap 10 mmol/L BUN 20 (9-20) mg/dL Creatinine 1.36 H (0.66-1.25) mg/dL Est GFR (CKD-EPI)AfAm 62 (>60 ml/min/1.73 sqM) Est GFR (CKD-EPI)NonAf 54 (>60 ml/min/1.73 sqM) Glucose 127 H (74-99) mg/dL Calcium 9.3 (8.4-10.2) mg/dL Total Bilirubin 0.5 (0.2-1.3) mg/dL AST 32 (17-59) U/L ALT 29 (4-49) U/L Alkaline Phosphatase 85 (38-126) U/L Troponin I (0.000-0.034) ng/mL Total Protein 7.0 (6.3-8.2) g/dL Albumin 4.4 (3.5-5.0) g/dL 08/12/22 Range/Units 20:03 WBC (3.8-10.6) k/uL RBC (4.30-5.90) m/uL Hgb (13.0-17.5) gm/dL Hct (39.0-53.0) % MCV (80.0-100.0) fL MCH (25.0-35.0) pg MCHC (31.0-37.0) g/dL RDW (11.5-15.5) % Plt Count (150-450) k/uL MPV Neutrophils % % Lymphocytes % % Monocytes % % Eosinophils % % Basophils % % Neutrophils # (1.3-7.7) k/uL Lymphocytes # (1.0-4.8) k/uL Monocytes # (0-1.0) k/uL Eosinophils # (0-0.7) k/uL Basophils # (0-0.2) k/uL PT (9.0-12.0) sec INR (<1.2) APTT (22.0-30.0) sec Sodium (137-145) mmol/L Potassium (3.5-5.1) mmol/L Chloride (98-107) mmol/L Carbon Dioxide (22-30) mmol/L Anion Gap mmol/L BUN (9-20) mg/dL Creatinine (0.66-1.25) mg/dL Est GFR (CKD-EPI)AfAm (>60 ml/min/1.73 sqM) Est GFR (CKD-EPI)NonAf (>60 ml/min/1.73 sqM) Glucose (74-99) mg/dL Calcium (8.4-10.2) mg/dL Total Bilirubin (0.2-1.3) mg/dL AST (17-59) U/L ALT (4-49) U/L Alkaline Phosphatase (38-126) U/L Troponin I 0.013 (0.000-0.034) ng/mL Total Protein (6.3-8.2) g/dL Albumin (3.5-5.0) g/dL Disposition Clinical Impression: Fall, Contusion of rib on left side, Left hand pain Disposition: HOME SELF-CARE Condition: Good Instructions (If sedation given, give patient instructions): Rib Contusion (ED) Is patient prescribed a controlled substance at d/c from ED?: No Referrals: Richard Hatfield MD [REFERRING] - 1-2 days Time of Disposition: 00:10
[2022-08-13] MEDS ORDERED: ACETAMINOPHEN TAB 500 MG TAB PO STA (00:08)
[2022-08-13] MEDS ORDERED: KETOROLAC 15 MG/ML 1 ML VIAL IVP STA (00:08)
[2022-08-13] MEDS ORDERED: MORPHINE SULFATE 4 MG/ML SYRINGE IVP STA (00:08)
[2022-08-13] MEDS ORDERED: ACET/COD 300 MG/30 MG STARTER PACK 6 TAB BTL PO STA (00:09)
[2022-08-13] MEDS ORDERED: IBUPROFEN 600 MG STARTER PACK 4 TAB BTL PO STA (00:09)
[2022-08-13 00:50] VITALS: BP 120/76; PULSE 52; RESP 18
== END 2022-08-13 00:47 | disposition home or self-care (01) ==
LOC: EC 19:38
DX: S20.212A Contusion of left front wall of thorax, initial encounter (principal); M79.642 Pain in left hand; E78.5 Hyperlipidemia, unspecified; I10 Essential (primary) hypertension; M19.90 Unspecified osteoarthritis, unspecified site; F12.90 Cannabis use, unspecified, uncomplicated; Z88.5 Allergy status to narcotic agent; Z79.82 Long term (current) use of aspirin; Z79.899 Other long term (current) drug therapy; W01.0XXA Fall on same level from slipping, tripping and stumbling without subsequent striking against object, initial encounter
CPT/HCPCS: 36415; 71045; 80053; 84484; 85025; 85610; 85730; 93005; 96374; 96375; 99285

== ENCOUNTER → 2022-08-24 | Outpatient (CLI) | payer MEDICARE ==
--- NOTE | 2022-08-24 12:28 | P.PN ---
Subjective DATE: 08/24/2022 FOLLOW UP VISIT. Patient with obstructive sleep apnea hypopnea syndrome return to sleep center for follow-up visit. Information from previous visit have been reviewed. Recently patient had Pap titration and he received new BIPAP unit. This is his first visit after he started to use new BIPAP unit. Patient is using BIPAP equipment every night for the whole night, getting PAP supplies in time. The patient does not have significant problems with the mask, BIPAP unit and humidification. Presently patient is using nasal mask. [place] sleepiness scale is 1, which is perfect. I checked BIPAP unit. BIPAP unit pressure maximal inspiratory pressure 21, minimal expiratory pressure 10, pressure support 4 cm H2O. Usage is 97 % for more then 4 hours, average 8 hours per night. Leak is 31.2 l/m, which is in acceptable range. Apnea Hypopnea Index is 3.9, which is normal. MEDICATIONS:1. Atenolol 25 mg once a day 2. Vytorin 3. Hydrocodone 28096 milligrams twice a day During physical exam: GENERAL: A pleasant patient without any distress. VITAL SIGNS: BP 122/67, HR 50, RR 16 , weight 252, temperature 98, oxygen saturation at room air 98 % . HEENT: PERRLA, EOMI.low position of soft palate . NECK: Supple. No JVD. LUNGS: Clear to percussion and to auscultation. Good air exchange. No wheezing or rhonchi. HEART: S1, S2 regular. ABDOMEN: Soft and nontender. Slightly obese EXTREMITIES: No clubbing or cyanosis. REDEYE GUNNER: Awake, alert, and oriented x3. No focal deficit. Impressions: 1. Obstructive sleep apnea-hypopnea syndrome. Patient demonstrated great compliance with treatment, benefiting from treatment. 2. Obesity. 3. Hypertension. 4. Arthritis. 5. Periodic limb movements during titration, no problems with sleep at the present time. Plan: 1. Continue using PAP equipment every night for the whole night. 2. To change air filter at least 1-2 times per month. 3. PAP unit should stay lower then position of the head. 4. Advised patient to remove all remaining water from humidifier canister daily and make it dry after each usage. Refill canister with fresh distilled water before each usage. 5. Sleep hygiene with regular time in bed for at least 8 hours. 6. Precautions related to driving. No driving if feel any sleepiness. 7. I will maintain prescription for PAP supplies including mask, tube, filters. 8. Follow up visit in 6 months or earlier if patient has any problems. 9. Watching and losing weight. Thank you very much for allowing me to participate in the management of your patient. Gonzalez Dwyer MD, PhD, FAASM. Diplomat of [place] [employer], Sleep Medicine Board by [place] [employer] Medicine Mechanic Chief of [facility] [place]
== END | disposition home or self-care (01) ==
LOC: SLEEP 11:43
PROVIDERS: ATTEND Internal Medicine
DX: G47.33 Obstructive sleep apnea (adult) (pediatric) (principal); E66.9 Obesity, unspecified; I10 Essential (primary) hypertension; M19.90 Unspecified osteoarthritis, unspecified site
CPT/HCPCS: 99212

== ENCOUNTER → 2023-02-22 | Outpatient (CLI) | payer MEDICARE ==
--- NOTE | 2023-02-22 13:54 | P.PN ---
Subjective DATE: 02/22/2023 FOLLOW UP VISIT. Patient with obstructive sleep apnea hypopnea syndrome return to sleep center for follow-up visit. Information from previous visit have been reviewed. Patient is using PAP equipment every night for the whole night, getting PAP supplies in time. The patient does not have significant problems with the mask, PAP unit and humidification. [place] sleepiness scale is 0, which is perfect. I checked information from PAP unit. PAP unit pressure maximal inspiratory pressure 21, minimal expiratory pressure 10, pressure-support 4, average pressure 17/13 cm H2O. Usage is 100 % for more then 4 hours, average 8.1 hours per night. Leak is 29 l/m, which is in acceptable range. Apnea Hypopnea Index is 6.0, last night 4.9, which is borderline. MEDICATIONS:1. Atenolol 25 mg once a day 2. Vytorin 3. Hydrocodone 325 mg/10 mg twice a day During physical exam: GENERAL: A pleasant patient without any distress. VITAL SIGNS: BP 121/71, HR 48, RR 16, weight 258.2, temperature 97.9, oxygen saturation at room air 97 % . HEENT: PERRLA, EOMI.low position of soft palate, Mallapati 3. NECK: Supple. No JVD. LUNGS: Clear to percussion and to auscultation. Good air exchange. No wheezing or rhonchi. HEART: S1, S2 regular. ABDOMEN: Soft and nontender. Obese EXTREMITIES: No clubbing or cyanosis. MIDDLE SCHOOL PRINCIPAL: Awake, alert, and oriented x3. No focal deficit. Impressions: 1. Obstructive sleep apnea-hypopnea syndrome. Patient demonstrated great compliance with treatment, benefiting from treatment. 2. Obesity, body mass index 37.1, patient increased his weight on 6 pounds comparing with previous visit. 3. Hypertension. 4. Arthritis. 5. Periodic limb movements, no problems related to sleep. 6. Restless leg symptoms. Plan: 1. Continue using PAP equipment every night for the whole night. 2. To change air filter at least 1-2 times per month. 3. PAP unit should stay lower then position of the head. 4. Advised patient to remove all remaining water from humidifier canister daily and make it dry after each usage. Refill canister with fresh distilled water before each usage. 5. Sleep hygiene with regular time in bed for at least 8 hours. 6. Precautions related to driving. No driving if feel any sleepiness. 7. I will maintain prescription for PAP supplies including mask, tube, filters. 8. Watching and losing weight. 9. Follow up visit in 6 months or earlier if patient has any problems. Thank you very much for allowing me to participate in the management of your patient. Gonzalez Dwyer MD, PhD, FAASM. Diplomat of [place] Board [employer] Sleep Medicine, Sleep Medicine Board by [place] Board [employer] Medicine Psych Coordinator of [facility] [place]
== END | disposition home or self-care (01) ==
LOC: SLEEP 13:32
PROVIDERS: ATTEND Internal Medicine
DX: G47.33 Obstructive sleep apnea (adult) (pediatric) (principal); E66.9 Obesity, unspecified; Z68.37 Body mass index [BMI] 37.0-37.9, adult; I10 Essential (primary) hypertension; G25.81 Restless legs syndrome; M19.90 Unspecified osteoarthritis, unspecified site; G47.61 Periodic limb movement disorder; Z99.89 Dependence on other enabling machines and devices; Z88.5 Allergy status to narcotic agent; F17.210 Nicotine dependence, cigarettes, uncomplicated
CPT/HCPCS: 99212

== ENCOUNTER → 2023-08-23 | Outpatient (CLI) | payer MEDICARE ==
--- NOTE | 2023-08-23 14:13 | P.PN ---
Subjective DATE: 08/23/2023 FOLLOW UP VISIT. Patient with obstructive sleep apnea hypopnea syndrome return to sleep center for follow-up visit. Information from previous visit have been reviewed. Patient is using PAP equipment every night for the whole night, getting PAP supplies in time. The patient does not have significant problems with the mask, PAP unit and humidification. [place] sleepiness scale is 0, which is perfect. I checked information from PAP unit. BPAP unit pressure maximal inspiratory pressure 21, minimal expiratory pressure 10, pressure-support 4, average pressure 16.8 /12.8 cm H2O. Usage is 100 % for more then 4 hours, average 8.5 hours per night. Leak is 31 l/m, which is in acceptable range. Apnea Hypopnea Index is 3.2, which is normal. MEDICATIONS:1. Atenolol 25 mg once a day 2. Hydrocodone 325/10 mg twice a day 3. Vytorin During physical exam: GENERAL: A pleasant patient without any distress. VITAL SIGNS: BP 131/73, HR 54, RR 16, weight 254.4, temperature 97.7, oxygen saturation at room air 99 % . HEENT: PERRLA, EOMI.low position of soft palate, Mallapati 3 . NECK: Supple. No JVD. LUNGS: Clear to percussion and to auscultation. Good air exchange. No wheezing or rhonchi. HEART: S1, S2 regular. ABDOMEN: Soft and nontender. Slightly obese EXTREMITIES: No clubbing or cyanosis. RELIGIOUS EDUCATOR: Awake, alert, and oriented x3. No focal deficit. Impressions: 1. Obstructive sleep apnea-hypopnea syndrome. Patient demonstrated great compliance with treatment, benefiting from treatment. 2. Obesity, patient lost 4 pounds comparing with previous visit. 3. History of periodic limb movements, no problems related to sleep. 4. Hypertension. 5. History of arthritis. 6. History of restless leg symptoms, no present complaints. Plan: 1. Continue using PAP equipment every night for the whole night. 2. To change air filter at least 1-2 times per month. 3. PAP unit should stay lower then position of the head. 4. Advised patient to remove all remaining water from humidifier canister daily and make it dry after each usage. Refill canister with fresh distilled water before each usage. 5. Sleep hygiene with regular time in bed for at least 8 hours. 6. Precautions related to driving. No driving if feel any sleepiness. 7. I will maintain prescription for PAP supplies including mask, tube, filters. 8. Follow up visit in 6 months or earlier if patient has any problems. 9. Watching and losing weight. Thank you very much for allowing me to participate in the management of your patient. Gonzalez Dwyer MD, PhD, FAASM. Diplomat of [place] [employer], Sleep Medicine Board by [place] [employer] Medicine Application Development Liaison of [facility] [place]
== END ==
LOC: 3 N SLEEP 13:43
PROVIDERS: ATTEND Internal Medicine
DX: G47.33 Obstructive sleep apnea (adult) (pediatric) (principal); E66.9 Obesity, unspecified; G25.81 Restless legs syndrome; M19.90 Unspecified osteoarthritis, unspecified site; G47.61 Periodic limb movement disorder; I10 Essential (primary) hypertension; F17.200 Nicotine dependence, unspecified, uncomplicated; Z79.899 Other long term (current) drug therapy; Z99.89 Dependence on other enabling machines and devices; Z88.5 Allergy status to narcotic agent; Z79.82 Long term (current) use of aspirin
CPT/HCPCS: 99212

== ENCOUNTER 2024-06-26 17:19 | Observation (INO) | payer MEDICARE ==
[2024-06-26] MEDS: ASPIRIN 81 MG PO STA (18:12)
[2024-06-26] MEDS: SODIUM CHLORIDE 0.9% 1,000 ML IV STA (18:13)
[2024-06-26 18:26] LABS: Basophils % (A) 1 %; Eosinophils # (A) 0.2 k/uL (0-0.7); Eosinophils % (A) 4 %; HCT 42.8 % (39.0-53.0); HGB 14.5 gm/dL (13.0-17.5); Lymphocytes # (A) 1.4 k/uL (1.0-4.8); Lymphocytes % (A) 21 %; MCH 33.6 pg (25.0-35.0); MCHC 33.8 g/dL (31.0-37.0); MCV 99.6 fL (80.0-100.0); Mean Platelet Volume 7.7; Monocytes # (A) 0.5 k/uL (0-1.0); Monocytes % (A) 7 %; Neutrophils # (A) 4.3 k/uL (1.3-7.7); Neutrophils % (A) 66 %; Platelet Count 219 k/uL (150-450); RDW 12.1 % (11.5-15.5); WBC 6.4 k/uL (3.8-10.6)
[2024-06-26 18:39] LABS: Partial Thromboplastin Time 26.2 sec (22.0-30.0); Prothrombin Time 10.7 sec (10.0-12.5)
[2024-06-26 18:57] LABS: ALT 22 U/L (4-49); AST 28 U/L (17-59); African American GFR (CKD) 76 (>60 ml/min/1.73 sqM); Albumin 4.3 g/dL (3.5-5.0); Alkaline Phosphatase 56 U/L (38-126); Anion Gap 8 mmol/L; Blood Urea Nitrogen 18 mg/dL (9-20); Calcium 9.5 mg/dL (8.4-10.2); Carbon Dioxide 28 mmol/L (22-30); Chloride 102 mmol/L (98-107); Glucose 93 mg/dL (74-99); Lipase 76 U/L (23-300); Magnesium 1.9 mg/dL (1.6-2.3); Non-African American GFR(CKD) 66 (>60 ml/min/1.73 sqM); Potassium 4.8 mmol/L (3.5-5.1); Sodium 138 mmol/L (137-145); Total Bilirubin 0.8 mg/dL (0.2-1.3); Total Protein 6.8 g/dL (6.3-8.2)
--- NOTE | 2024-06-26 19:06 | ED ---
General Adult HPI - General Chief complaint: Chest Pain Stated complaint: Chest Pain Time Seen by Provider: 06/26/24 17:50 Source: patient, RN notes reviewed, old records reviewed Mode of arrival: EMS - History of Present Illness Initial comments: Patient is a 69-year-old male who presents emergency department complaining of chest pain. Has a history of chest pain but said that it seems more intense lately. States it is substernal. Somewhat worse with movement as well as with palpation. Does not radiate. States it has been more intense over the last few days to a week. Not always there or provoked with movement over this period of time. States he does have a history of CAD as well as a history of hypertension, hyperlipidemia. No history of cardiac stents. Patient is obese. No current pain. Presents for further evaluation. Denies fevers, chills, c ough, chest pain, abdominal pain. Denies diaphoresis. Denies radiation of the pain. Denies nausea or vomiting. - Related Data Home Medications Medication Instructions Recorded Confirmed Ezetimibe/Simvastatin [Vytorin 1 tab PO HS 05/20/14 05/02/18 10-40 mg Tablet] Gabapentin [Neurontin] 300 mg PO TID 05/20/14 05/02/18 HYDROcodone/APAP 10-325MG [[place] 1 tab PO BID PRN 05/20/14 05/02/18 10] atenoloL [Tenormin] 25 mg PO HS 05/20/14 05/02/18 C,E,Zinc,Copper 11/Clnfk9k/Lut 1 tab PO DAILY 02/23/18 05/02/18 [Ocuvite Adult 50 Plus Softgel] Cholecalciferol [Vitamin D3] 5,000 unit PO DAILY 02/23/18 05/02/18 Diclofenac Sodium [Voltaren] 75 mg PO BID 02/23/18 05/02/18 Multivitamin [Men's Multi-Vitamin] 1 tab PO DAILY 02/23/18 05/02/18 metroNIDAZOLE 0.75% CREAM 1 applic TOPICAL BID 02/23/18 05/02/18 [Metrocream 0.75%] Aspirin 325 mg PO DAILY 05/02/18 05/02/18 Previous Rx's Medication Instructions Recorded Docusate [Colace] 100 mg PO DAILY #30 capsule 03/07/18 Allergies Allergy/AdvReac Type Severity Reaction Status Date / Time hydromorphone [From Dilaudid] AdvReac drop in Verified 08/12/22 19:48 b/p,nausea Review of Systems ROS Statement: Those systems with pertinent positive or pertinent negative responses have been documented in the HPI. Review of Systems: CONST: Denies fever EYES: Denies blurry vision ENT: Denies nasal congestion C/V: Denies Chest pain RESP: Denies shortness of breath GI: Denies abdominal pain : Denies dysuria SKIN: Denies rash. MSK: Denies joint pain. NEURO: Denies headache ROS Other: All systems not noted in ROS Statement are negative. Past Medical History Past Medical History: Hyperlipidemia, Hypertension, Osteoarthritis (OA), Skin Disorder, Sleep Apnea/CPAP/BIPAP Additional Past Medical History / Comment(s): hx colon polyps, USES CPAP, ROS ACEA History of Any Multi-Drug Resistant Organisms: None Reported Past Surgical History: Heart Catheterization, Joint Replacement, Orthopedic Surgery Additional Past Surgical History / Comment(s): RT knee surg., right hand surg- DISTAL MIDDLE AMPUTATION, COLONOSCOPY,lt total knee Past Anesthesia/Blood Transfusion Reactions: No Reported Reaction Past Psychological History: No Psychological Hx Reported Smoking Status: Never smoker Past Alcohol Use History: Occasional Past Drug Use History: Marijuana - Past Family History Father Family Medical History: Cancer, Deep Vein Thrombosis (DVT) Sister(s) Family Medical History: Cancer Brother(s) Family Medical History: Cancer General Exam - General Exam Comments Initial Comments: General: Appears in no acute distress. HEAD: Normal with no signs of head trauma. EYES: PERRLA, EOMI, conjunctiva normal, no discharge. ENT: Hearing grossly intact, normal oropharynx. RESPIRATORY: Clear breath sounds bilaterally. No wheezes, rales, or rhonchi. C/V: Regular rate and rhythm. S1 and S2 auscultated, no edema, peripheral pulses 2+ and intact throughout ABD: Abd is soft, nontender, nondistended EXT: Normal range of motion, no obvious deformity. Patient does have some tenderness to palpation over the inferior aspect of the sternum but patient states that this pain is different from what he was experiencing. SKIN: No rashes or lesions observed on exposed skin. NEURO: Alert and oriented x 4. Cranial nerves II-XII intact. No focal sensory or strength deficits. Course Vital Signs 06/26/24 06/26/24 06/26/24 17:24 17:35 19:37 Temperature 98.1 F Pulse Rate 84 52 L Pulse Rate [ 54 L Pulse Oximetery ] Respiratory 19 18 Rate Blood Pressure 129/63 135/74 O2 Sat by Pulse 97 96 Oximetry Medical Decision Making - Medical Decision Making Was pt. sent in by a medical professional or institution (, DESTINI, [employer]SEMBLER, urgent care, hospital, or custodial...) When possible be specific @ -No Did you speak to anyone other than the patient for history (EMS, parent, family, police, friend...)? What history was obtained from this source @ -No Did you review nursing and triage notes (agree or disagree)? Why? @ -I reviewed and agree with nursing and triage notes Were old charts reviewed (outside hosp., previous admission, EMS record, old EKG, old radiological studies, urgent care reports/EKG's, custodial records)? Report findings @ -. Compared today's EKG with EKG from July 2022 with no significant acute change. Nonspecific ST segment findings. Differential Diagnosis (chest pain, altered mental status, abdominal pain women, abdominal pain men, vaginal bleeding, weakness, fever, dyspnea, syncope, headache, dizziness, GI bleed, back pain, seizure, CVA, palpatations, mental health, musculoskeletal)? @ -Differential chest pain EKG interpreted by me (3pts min.). @ -As above X-rays interpreted by me (1pt min.). @ -Chest x-ray reveals no obvious acute cardiopulmonary process. CT interpreted by me (1pt min.). @ -None done U/S interpreted by me (1pt. min.). @ -None done What testing was considered but not performed or refused? (CT, X-rays, U/S, labs)? Why? @ -None What meds were considered but not given or refused? Why? @ -None Did you discuss the management of the patient with other professionals (professionals i.e. , DESTINI, [employer]SEMBLER, lab, RT, psych nurse, delinquency prevention social worker, signal tower director, teacher, first officer and flight instructor, counseling case manager)? Give summary @ -Discussed with the admitting physician, Dr. Rushing who accepted the admission. Was smoking cessation discussed for >3mins.? @ -No Was critical care preformed (if so, how long)? @ -No Were there social determinants of health that impacted care today? How? (Homelessness, low income, unemployed, alcoholism, drug addiction, transportation, low edu. Level, literacy, decrease access to med. care, [facility], rehab)? @ -No Was there de-escalation of care discussed even if they declined (Discuss DNR or withdrawal of care, Hospice)? DNR status @ -No What co-morbidities impacted this encounter? (DM, HTN, Smoking, COPD, CAD, Cancer, CVA, ARF, Chemo, Hep., AIDS, mental health diagnosis, sleep apnea, morbid obesity)? @ -None Was patient admitted / discharged? Hospital course, mention meds given and route, prescriptions, significant lab abnormalities, going to OR and other pertinent info. @ -Patient presents with chest pain which is currently resolved. Does seem to have a chest wall aspect of the pain and may be musculoskeletal in nature but patient states the pain has been different over the last week while his chest wall pain is more of a chronic issue. Will obtain cardiac workup. He will receive 162 mg of aspirin as he took 162 mg of aspirin just prior to arrival. He will be given a 1 L fluid bolus. Patient in agreement this plan. He is currently asymptomatic. EKG shows nonspecific ST segment findings. Troponin is undetectable. Chest x- ray unremarkable. Remainder the workup unremarkable. Patient remains asymptomatic. We discussed his workup. He will be admitted for cardiac observation as his heart score is moderate at 4. Patient was in agreement this plan. Cardiology consulted. Echo ordered. I spoke with the admitting physician, Dr. Rushing who accepted the admission. Undiagnosed new problem with uncertain prognosis? @ -No Drug Therapy requiring intensive monitoring for toxicity (Heparin, Nitro, Insu bárbara, Cardizem)? @ -No Were any procedures done? @ -No Diagnosis/symptom? @ -Chest pain Acute, or Chronic, or Acute on Chronic? @ -Acute on chronic Uncomplicated (without systemic symptoms) or Complicated (systemic symptoms)? @ -Complicated Side effects of treatment? @ -No Exacerbation, Progression, or Severe Exacerbation? @ -No Poses a threat to life or bodily function? How? (Chest pain, USA, DC, pneumonia, PE, COPD, DKA, ARF, appy, cholecystitis, CVA, Diverticulitis, Homicidal, Suicidal, threat to staff... and all critical care pts) @ -Potentially, yes - Lab Data Result diagrams: 06/26/24 18:09 06/26/24 18:09 Lab Results 06/26/24 06/26/24 06/26/24 Range/Units 18:09 18:09 18:09 WBC 6.4 (3.8-10.6) k/uL RBC 4.30 (4.30-5.90) m/uL Hgb 14.5 (13.0-17.5) gm/dL Hct 42.8 (39.0-53.0) % MCV 99.6 (80.0-100.0) fL MCH 33.6 (25.0-35.0) pg MCHC 33.8 (31.0-37.0) g/dL RDW 12.1 (11.5-15.5) % Plt Count 219 (150-450) k/uL MPV 7.7 Neutrophils % 66 % Lymphocytes % 21 % Monocytes % 7 % Eosinophils % 4 % Basophils % 1 % Neutrophils # 4.3 (1.3-7.7) k/uL Lymphocytes # 1.4 (1.0-4.8) k/uL Monocytes # 0.5 (0-1.0) k/uL Eosinophils # 0.2 (0-0.7) k/uL Basophils # 0.0 (0-0.2) k/uL PT 10.7 (10.0-12.5) sec INR 1.0 (<1.2) APTT 26.2 (22.0-30.0) sec Sodium (137-145) mmol/L Potassium (3.5-5.1) mmol/L Chloride (98-107) mmol/L Carbon Dioxide (22-30) mmol/L Anion Gap mmol/L BUN (9-20) mg/dL Creatinine (0.66-1.25) mg/dL Est GFR (CKD-EPI)AfAm (>60 ml/min/1.73 sqM) Est GFR (CKD-EPI)NonAf (>60 ml/min/1.73 sqM) Glucose (74-99) mg/dL Calcium (8.4-10.2) mg/dL Magnesium (1.6-2.3) mg/dL Total Bilirubin (0.2-1.3) mg/dL AST (17-59) U/L ALT (4-49) U/L Alkaline Phosphatase (38-126) U/L Troponin I (0.000-0.034) ng/mL Total Protein (6.3-8.2) g/dL Albumin (3.5-5.0) g/dL Lipase (23-300) U/L Urine Color Colorless Urine Appearance Clear (Clear) Urine pH 6.5 (5.0-8.0) Ur Specific [place] 1.009 (1.001-1.035) Urine Protein Negative (Negative) Urine Glucose (UA) Negative (Negative) Urine Ketones Negative (Negative) Urine Blood Negative (Negative) Urine Nitrite Negative (Negative) Urine Bilirubin Negative (Negative) Urine Urobilinogen <2.0 (<2.0) mg/dL Ur Leukocyte Esterase Negative (Negative) 06/26/24 06/26/24 Range/Units 18:09 18:09 WBC (3.8-10.6) k/uL RBC (4.30-5.90) m/uL Hgb (13.0-17.5) gm/dL Hct (39.0-53.0) % MCV (80.0-100.0) fL MCH (25.0-35.0) pg MCHC (31.0-37.0) g/dL RDW (11.5-15.5) % Plt Count (150-450) k/uL MPV Neutrophils % % Lymphocytes % % Monocytes % % Eosinophils % % Basophils % % Neutrophils # (1.3-7.7) k/uL Lymphocytes # (1.0-4.8) k/uL Monocytes # (0-1.0) k/uL Eosinophils # (0-0.7) k/uL Basophils # (0-0.2) k/uL PT (10.0-12.5) sec INR (<1.2) APTT (22.0-30.0) sec Sodium 138 (137-145) mmol/L Potassium 4.8 (3.5-5.1) mmol/L Chloride 102 (98-107) mmol/L Carbon Dioxide 28 (22-30) mmol/L Anion Gap 8 mmol/L BUN 18 (9-20) mg/dL Creatinine 1.14 (0.66-1.25) mg/dL Est GFR (CKD-EPI)AfAm 76 (>60 ml/min/1.73 sqM) Est GFR (CKD-EPI)NonAf 66 (>60 ml/min/1.73 sqM) Glucose 93 (74-99) mg/dL Calcium 9.5 (8.4-10.2) mg/dL Magnesium 1.9 (1.6-2.3) mg/dL Total Bilirubin 0.8 (0.2-1.3) mg/dL AST 28 (17-59) U/L ALT 22 (4-49) U/L Alkaline Phosphatase 56 (38-126) U/L Troponin I <0.012 (0.000-0.034) ng/mL Total Protein 6.8 (6.3-8.2) g/dL Albumin 4.3 (3.5-5.0) g/dL Lipase 76 (23-300) U/L Urine Color Urine Appearance (Clear) Urine pH (5.0-8.0) Ur Specific [place] (1.001-1.035) Urine Protein (Negative) Urine Glucose (UA) (Negative) Urine Ketones (Negative) Urine Blood (Negative) Urine Nitrite (Negative) Urine Bilirubin (Negative) Urine Urobilinogen (<2.0) mg/dL Ur Leukocyte Esterase (Negative) - EKG Data -: EKG Interpreted by Me EKG Comments: 12-lead Electrocardiogram Interpretation Note EKG was reviewed and interpreted by myself. 12-lead ECG performed at 1725 is interpreted by me as revealing bradycardia. Mild ST segment depression. At a rate of 54 beats per minute. Batson is normal. NE interval is 181 ms, QRS durations 106 ms, QTc is 368 ms.. There were no ST or T wave abnormalities to suggest myocardial ischemia or injury. R wave progression across the precordium was satisfactory. By my interpretation this EKG is non-diagnostic for acute ischemia. Disposition Clinical Impression: Chest pain Disposition: ADMITTED IP TO THIS HOSP Condition: Stable Time of Disposition: 20:42
[2024-06-26 19:54] LABS: Appearance,Urine Clear (Clear); Bilirubin,Urine Negative (Negative); Blood,Urine Negative (Negative); Color,Urine Colorless; Glucose,Urine (UA) Negative (Negative); Ketones,Urine Negative (Negative); Leukocyte Esterase,Urine Negative (Negative); Nitrite,Urine Negative (Negative); PH, Urine 6.5 (5.0-8.0); Protein,Urine Negative (Negative); Specific Gravity,Urine 1.009 (1.001-1.035); Urobilinogen,Urine <2.0 mg/dL (<2.0)
[2024-06-26] MEDS ORDERED: NALOXONE 0.4 MG/ML 1 ML VIAL IV PRN (20:39)
--- NOTE | 2024-06-26 21:08 | XR ---
EXAMINATION TYPE: XR chest 2V DATE OF EXAM: 06/26/2024 7:26 PM CLINICAL INDICATION: Male, 69 years old with history of Chest Pain; [facility] COMPARISON: Chest radiographs from 08/04/2022 TECHNIQUE: XR chest 2V Frontal view of the chest. FINDINGS: Lungs/Pleura: There is no evidence of pleural effusion, focal consolidation, or pneumothorax. Pulmonary vascularity: Unremarkable. Heart/mediastinum: Cardiomediastinal silhouette is enlarged. Musculoskeletal: No acute osseous pathology. IMPRESSION: No acute cardiopulmonary disease/process.
[2024-06-26] MEDS: NON FORMULARY DRUG (Ezetimibe/Simvastatin [Vytorin 10-40 Mg Tablet] 1 EACH Tablet) PO SCH (23:58)
[2024-06-27] MEDS: atenoloL 25 MG TAB PO SCH (00:28)
[2024-06-27] MEDS: HEPARIN SODIUM,PORCINE 5,000 UNIT/ML 1 ML VIAL SQ SCH (00:29)
[2024-06-27 08:42] LABS: Basophils # (A) 0.04 X 10*3/uL (0.00-0.10); Basophils % (A) 0.5 %; Eosinophils # (A) 0.31 X 10*3/uL (0.04-0.35); HCT 40.7 % (39.6-50.0); HGB 13.5 g/dL (13.0-17.0); Lymphocytes # (A) 2.16 X 10*3/uL (0.90-5.00); Lymphocytes % (A) 27.9 %; MCH 32.8 pg (27.0-32.0); MCHC 33.2 g/dL (32.0-37.0); Monocytes # (A) 0.81 X 10*3/uL (0.20-1.00); Monocytes % (A) 10.5 %; NRBC Per 100 WBC 0 X 10*3/uL (0.00-0.01); Neutrophils # (A) 4.39 X 10*3/uL (1.80-7.70); Neutrophils % (A) 56.8 %; Platelet Count 214 X 10*3/uL (140-440); RBC 4.11 X 10*6/uL (4.40-5.60); WBC 7.73 X 10*3/uL (4.50-10.00)
[2024-06-27 08:43] LABS: ALT 20 U/L (10-49); AST 18 U/L (14-35); Albumin/Globulin Ratio 2.11 Ratio (1.60-3.17); Alkaline Phosphatase 55 U/L (41-126); BUN/Creat Ratio 13.45 Ratio (12.00-20.00); Blood Urea Nitrogen 14.8 mg/dL (9.0-27.0); Calcium 8.9 mg/dL (8.7-10.3); Carbon Dioxide 25.3 mmol/L (21.6-31.8); Chloride 106 mmol/L (96-109); Globulin 1.9 g/dL (1.6-3.3); Glucose 114 mg/dL (70-110); Potassium 4.2 mmol/L (3.5-5.5); Sodium 139 mmol/L (135-145); Total Bilirubin 0.4 mg/dL (0.3-1.2); Total Protein 5.9 g/dL (6.2-8.2)
--- NOTE | 2024-06-27 09:19 | P.CRDCN ---
History of Present Illness History of present illness: HISTORY OF PRESENT ILLNESS: This is a 69-year-old male with a past medical history significant for obstructive sleep apnea and hypertension. Patient does not follow with a cap machine operator. We have been asked to see the patient in consultation for chest pain. Patient examined at the bedside. patient states he has been having chest pain for the past couple days. He denies any radiation of the pain. He denies feeling short of breath. He does report having 2 cardiac caths in the past but did not require any stenting. He states he does not follow with a cap machine operator. He does report a family history of heart disease and states his dad has a history of CAD and aortic valve replacement.at the time of examination, the patient denies any chest pain or pressure. He denies any shortness of breath. Vital signs are stable. EKG reveals sinus mechanism with no signs of acute ischemia. Cardiac enzymes are negative 3. REVIEW OF SYSTEMS: At the time of my exam: CONSTITUTIONAL: Denies fever or chills. HEENT: Denies blurred vision, vision changes, or eye pain. Denies hemoptysis CARDIOVASCULAR: Denies chest pain. Denies orthopnea. Denies PND. Denies palpitations RESPIRATORY: Denies shortness of breath. GASTROINTESTINAL: Denies abdominal pain. Denies nausea or vomiting. HEMATOLOGIC: Denies bleeding disorders. GENITOURINARY: Denies any blood in urine. SKIN: Denies pruitis. Denies rash. PHYSICAL EXAM: VITAL SIGNS: Reviewed. GENERAL: Well-developed in no acute distress. HEENT: Head is normocephalic. Pupils are equal, round. Sclerae anicteric. Mucous membranes of the mouth are moist. Neck supple. No JVD or thyromegaly LUNGS: Respirations even and unlabored. Lungs essentially clear to auscultation bilaterally. HEART: Regular rate and rhythm. S1 and S2 heard. ABDOMEN: Soft. Nondistended. Nontender. EXTREMITIES: Normal range of motion. No clubbing or cyanosis. Peripheral pulses intact. No lower extremity edema NEUROLOGIC: Awake and alert. Oriented x 3. ASSESSMENT: Chest pain, troponins negative 3 History of hypertension History of obstructive sleep apnea Obesity: BMI 35.9 PLAN: An acute coronary event has been ruled out Obtain 2-D echo to assess cardiac structure and function Resume all cardiac medications Patient will undergo stress echocardiogram today. Patient did receive his atenolol overnight. If he is unable to reach his target heart rate, stress echocardiogram will be rescheduled for tomorrow Further recommendations pending patient's course Nurse practitioner note has been reviewed by physician. Signing provider agrees with the documented findings, assessment, and plan of care. Past Medical History Past Medical History: Hyperlipidemia, Hypertension, Osteoarthritis (OA), Skin Disorder, Sleep Apnea/CPAP/BIPAP Additional Past Medical History / Comment(s): hx colon polyps, USES CPAP, ROSACEA History of Any Multi-Drug Resistant Organisms: None Reported Past Surgical History: Heart Catheterization, Joint Replacement, Orthopedic Surgery Additional Past Surgical History / Comment(s): RT knee surg., right hand surg- DISTAL MIDDLE AMPUTATION, COLONOSCOPY,lt total knee Past Anesthesia/Blood Transfusion Reactions: No Reported Reaction Past Psychological History: No Psychological Hx Reported Smoking Status: Never smoker Past Alcohol Use History: Occasional Past Drug Use History: Marijuana - Past Family History Father Family Medical History: Cancer, Deep Vein Thrombosis (DVT) Sister(s) Family Medical History: Cancer Brother(s) Family Medical History: Cancer Medications and Allergies Home Medications Medication Instructions Recorded Confirmed Type Ezetimibe/Simvastatin [Vytorin 1 tab PO HS 05/20/14 06/27/24 History 10-40 mg Tablet] HYDROcodone/APAP 10-325MG [[place] 1 tab PO BID 05/20/14 06/27/24 History 10] atenoloL [Tenormin] 25 mg PO HS 05/20/14 06/27/24 History Aspirin EC [Ecotrin Low Dose] 81 mg PO HS 06/27/24 06/27/24 History Cyclobenzaprine [Flexeril] 10 mg PO TID PRN 06/27/24 06/27/24 History Allergies Allergy/AdvReac Type Severity Reaction Status Date / Time hydromorphone [From Dilaudid] AdvReac drop in Verified 06/27/24 07:32 b/p,nausea Physical Exam Vitals: Vital Signs Temp Pulse Pulse Resp BP BP Pulse Ox 06/27/24 07:00 97.9 F 48 L 17 119/71 98 06/27/24 02:00 97.5 F L 56 L 16 147/76 97 06/26/24 23:31 98.2 F 61 18 122/73 95 06/26/24 19:37 52 L 18 135/74 96 06/26/24 17:35 54 L 06/26/24 17:24 98.1 F 84 19 129/63 97 Intake and Output 06/26/24 06/27/24 06/27/24 22:59 06:59 14:59 Intake Total 0 0 Balance 0 0 Intake: Oral 0 0 Other: # Voids 2 2 Weight 113.398 kg Results 06/27/24 03:55 06/27/24 03:55 Cardiac Enzymes 06/26/24 06/26/24 06/26/24 Range/Units 18:09 18:09 21:22 AST 28 (17-59) U/L Troponin I <0.012 <0.012 (0.000-0.034) ng/mL 06/26/24 06/27/24 Range/Units 23:59 03:55 AST 18 (17-59) U/L Troponin I <0.012 (0.000-0.034) ng/mL Coagulation 06/26/24 Range/Units 18:09 PT 10.7 (10.0-12.5) sec APTT 26.2 (22.0-30.0) sec CBC 06/26/24 06/27/24 Range/Units 18:09 03:55 WBC 6.4 7.73 (3.8-10.6) k/uL RBC 4.30 4.11 L (4.30-5.90) m/uL Hgb 14.5 13.5 (13.0-17.5) gm/dL Hct 42.8 40.7 (39.0-53.0) % Plt Count 219 214 (150-450) k/uL Comprehensive Metabolic Panel 06/26/24 06/27/24 Range/Units 18:09 03:55 Sodium 138 139 (137-145) mmol/L Potassium 4.8 4.2 (3.5-5.1) mmol/L Chloride 102 106 (98-107) mmol/L Carbon Dioxide 28 25.3 (22-30) mmol/L BUN 18 14.8 (9-20) mg/dL Creatinine 1.14 1.1 (0.66-1.25) mg/dL Glucose 93 114 H (74-99) mg/dL Calcium 9.5 8.9 (8.4-10.2) mg/dL AST 28 18 (17-59) U/L ALT 22 20 (4-49) U/L Alkaline Phosphatase 56 55 (38-126) U/L Total Protein 6.8 5.9 L (6.3-8.2) g/dL Albumin 4.3 4.0 (3.5-5.0) g/dL Current Medications Generic Name Dose Route Start Last Admin Trade Name Freq PRN Reason Stop Dose Admin Atenolol 25 mg 06/26/24 22:15 06/27/24 00:28 Atenolol 25 Mg Tab PO 25 mg HS DANIELLE Administration Heparin Sodium (Porcine) 5,000 unit 06/27/24 00:00 06/27/24 08:55 Heparin Sodium,Porcine 5,000 Unit/Ml 1 Ml Vial SQ 5,000 unit Q8HR DANIELLE Administration Naloxone HCl 0.2 mg 06/26/24 20:39 Naloxone 0.4 Mg/Ml 1 Ml Vial IV Q2M PRN Opioid Reversal Non-Formulary Medication 1 tab 06/26/24 22:30 06/26/24 23:58 Ezetimibe/Simvastatin [Vytorin 10-40 Mg Tablet] PO Not Given HS DANIELLE Intake and Output 06/26/24 06/27/24 06/27/24 22:59 06:59 14:59 Intake Total 0 0 Balance 0 0 Intake: Oral 0 0 Other: # Voids 2 2 Weight 113.398 kg 06/27/24 03:55 06/27/24 03:55
--- NOTE | 2024-06-27 10:22 | CA ---
Stress Echo Report Poncho Iniguze Age: 69 Gender: M : 1955 Exam Date: 06/27/2024 09:48 Exam Location: [place] Stress Ht (in): 70 Wt (lb): 250 Ordering Physician: Yadira Grimaldo Referring Physician: [id number] Gunite Mixer: DELMIS Technologist Procedure CPT: Indication: CP ICD-9 Codes: Rhythm: Patient History: Cardiac Medications: SEE CHART Medications in past 24 hours: Contrast: N/A Stress Results Protocol: Carlo Total dose(mL): NA Exercise Duration (min:sec): 8:[address] Depression (mm): Angina Score: Mead Score: METS: 9.7 Resting HR: 60 Resting BP: 120 / 67 Peak HR: 131 Peak BP: 200 / 92 Max Predicted HR: 151 87 % Max Predicted HR Target HR: 128 Double Product: 92830 Stress Summary: BP Response: Reason for Termination: Reached target heart rate or work-load Cardiac Symptoms: Dyspnea ECG Analysis Resting ECG: Normal sinus rhythm nonspecific ST-T wave changes Stress ECG: Patient exercised on Carlo protocol for 8 minutes achieving 9 METs 85% of predicted maximal heart rate without chest pain and the EKG changes are nondiagnostic secondary to baseline EKG abnormalities Arrhythmia: Echo Analysis Resting Echo: Normal left ventricular size wall motion systolic function Peak Echo Analysis: Normal hyperdynamic response of all segments of myocardium noted MEASUREMENTS (Male/Female) Normal Values CONCLUSIONS Good exercise tolerance Inconclusive EKG portion of the stress test due to baseline EKG of normalities Negative stress echo Dr. Kiran Christianson MD (Electronically Signed) Final Date: 27 June 2024 10:21
--- NOTE | 2024-06-27 11:22 | CA ---
Transthoracic Echo Report Name: Poncho Iniguez Age: 69 Gender: M : 1955 Exam Date: 06/27/2024 10:07 Exam Location: [place] Echo Ht (in): 70 Wt (lb): 250 Ordering Physician: David Fischer MD Attending/Referring Phys: Dental Equipment Mechanic Lis Miranda RDCS Procedure CPT: Indications: Chest Pain Cardiac Hx: Technical Quality: Fair Contrast 1: Total Dose (mL): Contrast 2: Total Dose (mL): MEASUREMENTS (Male / Female) Normal Values 2D ECHO LV Diastolic Diameter PLAX 5.2 cm 4.2 - 5.9 / 3.9 - 5.3 cm LV Systolic Diameter PLAX 3.7 cm IVS Diastolic Thickness 1.2 cm 0.6 - 1.0 / 0.6 - 0.9 cm LVPW Diastolic Thickness 1.1 cm 0.6 - 1.0 / 0.6 - 0.9 cm LV Relative Wall Thickness 0.4 RV Internal Dim ED PLAX 3.6 cm LA Systolic Diameter LX 4.3 cm 3.0 - 4.0 / 2.7 - 3.8 cm LV Diastolic Volume MOD 4C 99.4 cm??? LV Systolic Volume MOD 4C 46.7 cm??? LV Ejection Fraction MOD 4C 53.0 % LV Cardiac Index MOD 4C 1617.6 cm???/min???m??? LV Diastolic Length 4C 9.4 cm LV Systolic Length 4C 8.4 cm LV Diastolic Volume MOD 2C 96.8 cm??? LV Systolic Volume MOD 2C 40.0 cm??? LV Ejection Fraction MOD 2C 58.6 % LV Cardiac Index MOD 2C 1744.4 cm???/min???m??? LV Diastolic Length 2C 9.2 cm LV Systolic Length 2C 8.0 cm LA Volume 76.2 cm??? 18 - 58 / 22 - 52 cm??? LA Volume Index 31.6 cm???/m??? 16 - 28 cm???/m??? M-MODE Aortic Root Diameter MM 3.8 cm AV Cusp Separation MM 2.3 cm DOPPLER AV Peak Velocity 164.6 cm/s AV Peak Gradient 10.8 mmHg MV Area PHT 3.5 cm??? Mitral E Point Velocity 130.0 cm/s Mitral A Point Velocity 114.3 cm/s Mitral E to A Ratio 1.1 MV Deceleration Time 216.2 ms TR Peak Velocity 291.2 cm/s TR Peak Gradient 33.9 mmHg Right Ventricular Systolic Press 37.2 mmHg FINDINGS Left Ventricle Left ventricular ejection fraction is estimated at 55-60 %. Left ventricular cavity size normal. Mildly increased septal wall thickness. Normal left ventricular wall motion. Right Ventricle Mild right ventricular dilatation. Mild pulmonary hypertension. Right Atrium Normal right atrial size. No right atrial thrombus or mass seen. Left Atrium Mildly increased left atrial diameter. Mildly increased left atrial volume. Mildly increased left atrial area. Mitral Valve Structurally normal mitral valve. No mitral stenosis, regurgitation or prolapse. Aortic Valve Trileaflet aortic valve. No aortic valve stenosis or regurgitation. Tricuspid Valve Structurally normal tricuspid valve. Mild tricuspid regurgitation. Pulmonic Valve Structurally normal pulmonic valve. No pulmonic regurgitation. Pericardium No pericardial or pleural effusion. Aorta Mild aortic dilatation at the level of the sinuses of valsalva 38 mm CONCLUSIONS Normal EF 55-60 %. Mild PHTN. Mild AO root dialation Previewed by: Dr. Kiran Christianson MD (Electronically Signed) Final Date: 27 June 2024 11:21
[2024-06-27 14:27] VITALS: BP 113/68; PULSE 52; RESP 18; TEMP 97.8
--- NOTE | 2024-06-29 08:28 | P.HPIM ---
History of Present Illness H&P Date: 06/27/24 This is a pleasant 69-year-old male who was recently admitted with chest pain that he reports has been ongoing and intermittent over the last few days to a week up in the chest area that it feels like a pressure or heaviness with sharp intensity that goes away but has been recurring. Patient reports he follows with Dr. Stephen donaldson in the outpatient setting with a past medical history of hypertension, sleep apnea and wears a BiPAP, obesity, previous cardiac catheterizations with no stenting. Patient does not smoke rarely drinks and denies any other illicit drug use. Patient had negative troponins and was evaluated by cardiology this morning recommending stress testing. Patient does take atenolol and reports he has taken for years although heart rate is in the 40s and would recommend holding for now. REVIEW OF SYSTEMS: CONSTITUTIONAL: No fever, no malaise,. CARDIOVASCULAR: No chest pain, no palpitations, no syncope. PULMONARY: As mentioned above GASTROINTESTINAL: No diarrhea, no nausea, no vomiting, no abdominal pain. NEUROLOGICAL: No headaches, no weakness PHYSICAL EXAMINATION: GENERAL: The patient is alert and oriented x3, well-developed, elderly appearing, obese HEENT: Pupils are round and equally reacting to light. EOMI. No scleral icterus. No conjunctival pallor. Normocephalic, atraumatic. No pharyngeal erythema. No thyromegaly. CARDIOVASCULAR: S1 and S2 muffled PULMONARY: Breath sounds clear to auscultation with no wheezing or rhonchi noted ABDOMEN: Soft, obese. Nontender, nondistended, normoactive bowel sounds. No palpable organomegaly. MUSCULOSKELETAL: No joint swelling or deformity. EXTREMITIES: No cyanosis, clubbing, or pedal edema. NEUROLOGICAL: Gross neurological examination did not reveal any focal deficits. SKIN: No rashes. Assessment and plan Chest pain, ruled out ACS, stress test was negative History of hypertension History of sleep apnea and wears a BiPAP at night Obesity with a BMI 35.9 GI prophylaxis DVT prophylaxis Full Code Plan Patient was admitted under observation for chest pain with cardiology following and underwent stress testing which was negative, and troponins x 3 were negative and has been cleared by cardiology for outpatient follow-up Patient takes atenolol daily and he reports for blood pressure although blood pressures have been normotensive and heart rates have been in the 40s and recommend holding for now until outpatient follow-up Patient will be discharged later today. The impression and plan of care has been dictated by Radhika Aguero, Nurse Practitioner as directed. Dr. Tod MD I have performed a history and physical examination and medical decision making of this patient, discussed the same with the dictator, and agree with the dictators assessment and plan as written, documented as a scribe. Based on total visit time, I have performed more than 50% of this visit. Past Medical History Past Medical History: Hyperlipidemia, Hypertension, Osteoarthritis (OA), Skin Disorder, Sleep Apnea/CPAP/BIPAP Additional Past Medical History / Comment(s): hx colon polyps, USES CPAP, ROSACEA History of Any Multi-Drug Resistant Organisms: None Reported Past Surgical History: Heart Catheterization, Joint Replacement, Orthopedic Surgery Additional Past Surgical History / Comment(s): RT knee surg., right hand surg- DISTAL MIDDLE AMPUTATION, COLONOSCOPY,lt total knee Past Anesthesia/Blood Transfusion Reactions: No Reported Reaction Past Psychological History: No Psychological Hx Reported Smoking Status: Never smoker Past Alcohol Use History: Occasional Past Drug Use History: Marijuana - Past Family History Father Family Medical History: Cancer, Deep Vein Thrombosis (DVT) Sister(s) Family Medical History: Cancer Brother(s) Family Medical History: Cancer Medications and Allergies Home Medications Medication Instructions Recorded Confirmed Type Ezetimibe/Simvastatin [Vytorin 1 tab PO HS 05/20/14 06/27/24 History 10-40 mg Tablet] HYDROcodone/APAP 10-325MG [[place] 1 tab PO BID 05/20/14 06/27/24 History 10-325] Aspirin EC [Ecotrin Low Dose] 81 mg PO HS 06/27/24 06/27/24 History Cyclobenzaprine [Flexeril] 10 mg PO TID PRN 06/27/24 06/27/24 History Allergies Allergy/AdvReac Type Severity Reaction Status Date / Time hydromorphone [From Dilaudid] AdvReac drop in Verified 06/27/24 07:32 b/p,nausea Physical Exam Vitals: Vital Signs Temp Pulse Pulse Resp BP BP Pulse Ox 06/27/24 07:00 97.9 F 48 L 17 119/71 98 06/27/24 02:00 97.5 F L 56 L 16 147/76 97 06/26/24 23:31 98.2 F 61 18 122/73 95 06/26/24 19:37 52 L 18 135/74 96 06/26/24 17:35 54 L 06/26/24 17:24 98.1 F 84 19 129/63 97 Intake and Output 06/26/24 06/27/24 06/27/24 22:59 06:59 14:59 Intake Total 0 0 Balance 0 0 Intake: Oral 0 0 Other: # Voids 2 2 Weight 113.398 kg Results CBC & Chem 7: 06/27/24 03:55 06/27/24 03:55 Labs: Abnormal Lab Results - Last 24 Hours (Table) 06/27/24 06/27/24 Range/Units 03:55 03:55 RBC 4.11 L (4.40-5.60) X 10*6/uL MCV 99.0 H (80.0-97.0) FL MCH 32.8 H (27.0-32.0) pg Glucose 114 H (70-110) mg/dL Total Protein 5.9 L (6.2-8.2) g/dL Thrombosis Risk Factor Assmnt - Choose All That Apply Any of the Below Risk Factors Present?: Yes Each Factor Represents 1 point: Obesity (BMI >25) Other Risk Factors: Yes Each Risk Factor Represents 2 Points: Age 61-74 years Other congenital or acquired thrombophilia - If yes, enter type in comment: No Thrombosis Risk Factor Assessment Total Risk Factor Score: 3 Thrombosis Risk Factor Assessment Level: Moderate Risk
--- NOTE | 2024-06-29 08:31 | P.DS ---
Providers Date of admission: 06/26/24 20:41 Expected date of discharge: 06/27/24 Attending physician: Alex Rushing MD Consults: 06/26/24 20:39 Consult Physician Routine Consulting Provider: [facility] Consult Reason/Comments: chest pain Do you want consulting provider notified?: Yes Primary care physician: Stephen Donaldson Hospital Course: Final diagnosis Chest pain, ruled out ACS, stress test was negative History of hypertension History of sleep apnea and wears a BiPAP at night Obesity with a BMI 35.9 GI prophylaxis DVT prophylaxis Full Code Discharge disposition Patient is being discharged in a stable condition with guarded prognosis to home. Patient will follow-up with Dr. Stephen donaldson in the outpatient setting upon discharge. Patient is to continue with holding atenolol for now and outpatient follow-up with cardiology as scheduled. Total time taken is greater than 35 minutes. Hospital course This is a 69-year-old male who was recently admitted with chest pain that had been ongoing for the last few days to week and becoming more persistent even with no exertion. Patient had troponins drawn which were negative x 3 and underwent stress testing which was negative and cardiology has cleared the patient for outpatient follow-up. Patient does take atenolol daily although blood pressure is noted to be normotensive and heart rates have been low in the 40s and recommend holding until outpatient follow-up. Please refer to cardiology note for further HPI. Currently no reports of chest pain, shortness of breath, or palpitations. Patient is afebrile. No reports of nausea or vomiting and patient is tolerating diet. Patient will be discharged home today. Physical exam: Gen: This is a 69-year-old male who is awake, alert and oriented x 3, well- developed, well-nourished, obese HEENT: Head is atraumatic, normocephalic. Pupils equal, round. Sclerae is anicteric. NECK: Supple. No JVD. No lymphadenopathy. No thyromegaly. LUNGS: Clear to auscultation. No wheezes or rhonchi. No intercostal retractions. HEART: S1, S2 are muffled, sinus bradycardia on the monitor ABDOMEN: Soft. Obese. Bowel sounds are present. No masses. No tenderness. EXTREMITIES: No pedal edema. No calf tenderness. NEUROLOGICAL: Patient is awake, alert and oriented x3. Cranial nerves 2 through 12 are grossly intact. Please refer to medication reconciliation sheet for a list of medications. The impression and plan of care has been dictated by Radhika Aguero, Nurse Practitioner as directed. Dr. Tod MD I have performed a history and examination and MDM of this patient, discussed the same with the dictator, and agree with the dictator's assessment and plan as written ,documented as a scribe. Based on total visit time, I have performed more than 50% of the visit. Patient Condition at Discharge: Stable Plan - Discharge Summary Discharge Rx Participant: No New Discharge Prescriptions: Continue HYDROcodone/APAP 10-325MG [[place] 10-325] 1 tab PO BID Ezetimibe/Simvastatin [Vytorin 10-40 mg Tablet] 1 tab PO HS Cyclobenzaprine [Flexeril] 10 mg PO TID PRN PRN Reason: Muscle Spasm Aspirin EC [Ecotrin Low Dose] 81 mg PO HS Discontinued atenoloL [Tenormin] 25 mg PO HS Discharge Medication List Ezetimibe/Simvastatin [Vytorin 10-40 mg Tablet] 1 tab PO HS 05/20/14 [History] HYDROcodone/APAP 10-325MG [[place] 10-325] 1 tab PO BID 05/20/14 [History] Aspirin EC [Ecotrin Low Dose] 81 mg PO HS 06/27/24 [History] Cyclobenzaprine [Flexeril] 10 mg PO TID PRN 06/27/24 [History] Follow up Appointment(s)/Referral(s): Stephen Donaldson DO [Primary Care Provider] - 1-2 days Kiran Christianson MD [STAFF PHYSICIAN] - 1 Week ([facility] will call patient to schedule appointment) Patient Instructions/Handouts: Chest Pain (DC), Stress Echocardiogram (DC) Activity/Diet/Wound Care/Special Instructions: Activity limited until follow-up Follow-up with cardiology in 1 to 2 weeks Follow-up with primary care provider on discharge Continue holding atenolol for now until follow-up Discharge Disposition: HOME SELF-CARE
== END 2024-06-27 15:48 | disposition home or self-care (01) ==
LOC: EC 17:19 → 6NMEDSUR 20:41
PROVIDERS: ADMIT Internal Medicine; ATTEND Internal Medicine
DX: R07.9 Chest pain, unspecified (principal); E78.5 Hyperlipidemia, unspecified; I25.10 Atherosclerotic heart disease of native coronary artery without angina pectoris; I10 Essential (primary) hypertension; G47.33 Obstructive sleep apnea (adult) (pediatric); E66.9 Obesity, unspecified; Z68.35 Body mass index [BMI] 35.0-35.9, adult; Z95.4 Presence of other heart-valve replacement; Z79.899 Other long term (current) drug therapy; Z79.82 Long term (current) use of aspirin; Z88.5 Allergy status to narcotic agent; Z82.49 Family history of ischemic heart disease and other diseases of the circulatory system
CPT/HCPCS: 36415; 71046; 80053; 81003; 83690; 83735; 84484; 85025; 85610; 85730; 93005; 93306; 93351; 96360; 96372; 99285

== ENCOUNTER → 2024-07-08 | Outpatient (CLI) | payer MEDICARE | END | disposition home or self-care (01) | LOC: LABPAT 11:07 | PROVIDERS: ATTEND Orthopaedic Surgery | DX: Z22.322 Carrier or suspected carrier of Methicillin resistant Staphylococcus aureus | CPT/HCPCS: 87070 ==

== ENCOUNTER 2024-09-09 10:49 | Day surgery (SDC) | payer MEDICARE ==
[2024-09-05 14:01] VITALS: BMI 36.3
--- NOTE | 2024-09-09 07:31 | HP ---
HISTORY AND PHYSICAL DATE OF SURGERY: 09/09/2024. HISTORY OF PRESENT ILLNESS: Poncho Iniguez is a 69-year-old gentleman seen with symptomatic right knee osteoarthritis. After having treatment options discussed, he elected to proceed with right total knee arthroplasty. Consent regarding the procedure was obtained. Medical clearance was provided by Dr. Stephen Stiles. PAST MEDICAL HISTORY: Hypertension. PAST SURGICAL HISTORY: Noncontributory. DAILY MEDICATIONS: 1. Vytorin. 2. Atenolol. 3. Diazepam. 4. Aspirin. ALLERGIES: Dilaudid. SOCIAL HISTORY: Denies current tobacco use. PHYSICAL EVALUATION OF THE RIGHT KNEE: His range of motion is -2/3 to 110 degrees. Mild effusion. Tenderness, medial joint line. Crepitus, medial patellofemoral compartments with range of motion. Pain with patellofemoral compression. Ligaments stable. Hip rotation is without pain. Distal neurovascular exam is intact. RADIOGRAPHS: Right knee reveal severe osteoarthritic changes. IMPRESSION: 1. Right knee osteoarthritis. 2. Hypertension. PLAN: Right total knee arthroplasty. MMODL / IJN: [id number] /
[~2024-09-09 10:49] MED LIST changes: -LACTATED RINGERS 1,000 ML IV SCH; +LIDOCAINE 1% (10MG/ML) FOR IV START INTRADERMA PRN; -LIDOCAINE 1% 20 ML VIAL (10MG/ML) FOR IV START INTRADERMA PRN; -MIDAZOLAM 2 MG/2 ML VIAL IV PRN; -MORPHINE SULFATE 4 MG/ML SYRINGE IV PRN; +TRANEXAMIC 1,000 MG/100ML-NACL 1,000 MG in SALINE 1 100ML.BAG IVPB PRN; -ceFAZolin IN SWFI 2 GM/20 ML SYRINGE IVP ONE
[2024-09-09] MEDS: MELOXICAM 7.5 MG TAB PO PRN (11:07)
[2024-09-09] MEDS: ONDANSETRON 4 MG/2 ML VIAL IVP ONE (11:08)
[2024-09-09] MEDS: LACTATED RINGERS 1,000 ML IV SCH ×2 (11:08→17:22)
[2024-09-09] MEDS: ACETAMINOPHEN TAB 500 MG TAB PO PRN (11:08)
[2024-09-09] MEDS: IV FLUID CONTINUATION 1,000 ML IV ONE (11:50)
[2024-09-09] MEDS: MIDAZOLAM 2 MG/2 ML VIAL IV ONE (12:07)
[2024-09-09] MEDS: ceFAZolin 1,000 MG in SODIUM CHLORIDE 0.9% 1,000 ML IRRIGATION ONE (12:56)
[2024-09-09] MEDS: LACTATED RINGERS 1,000 ML IV ONE (13:39)
--- NOTE | 2024-09-09 14:22 | P.OP ---
Date of Procedure: 09/09/24 Preoperative Diagnosis: Right knee osteoarthritis Postoperative Diagnosis: Right knee osteoarthritis Procedure(s) Performed: Right total knee arthroplasty Implants: 1. DePuy attune size 7 right cruciate retaining cemented femur 2. DePuy attune size 7 fixed-bearing cemented tibial baseplate 3. DePuy attune size 7 fixed-bearing cruciate retaining 7 mm polyethylene tibial insert 4. DePuy attune 41 mm all polyethylene cemented patella Anesthesia: regional (Adductor canal catheter, iPAQ block), spinal Surgeon: Guillermo Alvarado [employer]: Ludwin Gore Estimated Blood Loss (ml): 40 Pathology: none sent Condition: stable Disposition: PACU Indications for Procedure: 69-year-old patient seen with symptomatic right knee osteoarthritis. After having treatment options discussed, he elected to proceed with total knee arthroplasty. Operative Findings: See description of procedure Description of Procedure: Patient was taken to the operative suite after having an adductor canal catheter placed by the department of anesthesia. Patient underwent a spinal anesthetic by the department of anesthesia. Patient was given preoperative IV intake antibiotics and TXA. A well-padded tourniquet was placed about the right lower extremity. The lower extremity was then prepped and draped in the normal sterile orthopedic fashion. The extremity was elevated, a tourniquet was insufflated to 300. A standard anterior incision was made sharply through skin. Dissection was taken down through the subcutaneous soft tissues down to the extensor mechanism. A medial arthrotomy was performed, patella was everted and knee was flexed. There was advanced osteoarthritis noted. I introduced my distal intramedullary femoral drill. I then introduced the distal femoral cutting jig. Escobar GEORGES secured the cutting jig with 2 pins. I held retractors in position while Escobar GEORGES performed the distal femoral resection through the guide area we now removed her distal femoral cutting guide. We now placed our 4-in-1 femoral cutting block and positioned and it was secured with 2 pins by Escobar GEORGES while I held the block in position. The distal femoral finishing was now completed. A proximal tibial cutting guide was positioned. I held the guide in the appropriate position with both hands well Escobar GEORGES inserted stabilizing pins into the guide. Proximal tibial cut was made. We now placed a trial femoral component into position, along with an appropriate size tibial tray and insert. We now took the knee through range of motion and had full extension good flexion and good overall soft tissue balance noted. The patella was everted and stabilized with 2 towel clips held by Escobar GEORGES while I performed a flush with patellar quad tendon utilizing a fresh sawblade. We templated the patella, appropriate drill holes were made. An appropriate trial patella was positioned, knee was taken through full range of motion with the patella tracking very nicely. The trial patella was removed. Drill holes were made through the femoral component. All trial components were removed after marking off the appropriate rotation of the tibia. Retractors were now positioned along the proximal tibia. An appropriate keel punch was made with the appropriate size tibial guide by myself on Escobar GEORGES assisted by holding retractors. At this point appropriate size implants were chosen and opened. The joint was irrigated copiously with pulse lavage mechanical irrigation. The wound was irrigated with pulse lavage mechanical irrigation. We mixed antibiotic methylmethacrylate. We placed the knee into flexion. We placed multiple retractors assisted by Escobar GEORGES to expose the proximal tibia. Once the methyl methacrylate was ready, the tibial component was cemented into place removing any excess methylmethacrylate form by both myself and Escobar GEORGES. The femoral component was cemented into place removing the removing any excess methylmethacrylate performed by both myself and Escobar GEORGES. We then inserted the appropriate size polyethylene tibial insert. We made sure that it was locked into position. We took the knee into full extension, and then back in a flexion making sure we had removed any excess methylmethacrylate. The patellar component was then cemented down and secured with clamp. Excess methylmethacrylate removed. We kept the knee in full extension, patellar clamp in position until methylmethacrylate had hardened. Once it had hardened the patellar clamp was removed. The knee was taken through full range of motion. The patella tracked nicely. There was good soft tissue balancing. The tourniquet was now released. Additional hemostasis was achieved via electrocautery. A second gram of TXA was given. The wound again was irrigated with pulse lavage mechanical irrigation. The extensor mechanism was repaired with Ethibond suture. We checked the repair with range of motion and it was stable. The subcutaneous soft tissues were repaired with Vicryl in layers. The skin was approximated with pernio/Dermabond. Sterile dressings were applied followed by loose web roll and Ramy bandage. The patient was transferred to a bed, and taken to recovery in stable and satisfactory condition. Escobar GEORGES assisted with this complex procedure.
[2024-09-09] MEDS ORDERED: NALOXONE 0.4 MG/ML 1 ML VIAL IV PRN (14:23)
[2024-09-09] MEDS ORDERED: HYDROcodone/APAP 5-325MG 1 EACH TAB PO PRN (14:23)
[2024-09-09] MEDS ORDERED: HYDROmorphone 0.5 MG/0.5 ML SYRINGE IVP PRN ×3 (14:23)
[2024-09-09] MEDS ORDERED: ONDANSETRON 4 MG/2 ML VIAL IVP PRN (14:23)
[2024-09-09] MEDS: ROPIVACAINE 1,100 MG, SODIUM CHLORIDE 0.9% 500 ML 330 ML, EMPTY PAIN BALL 1 EACH MISCELLANE PRN (14:50)
[2024-09-09] MEDS: fentaNYL (PF) 50 MCG/ML 2 ML AMP IV PRN (15:20)
--- NOTE | 2024-09-09 15:26 | XR ---
Limited right knee HISTORY: Postop right knee prosthesis. COMPARISON: None TECHNIQUE: 2 views of the right knee were obtained. FINDINGS: There is a total right knee prosthesis in near anatomic alignment. There is no acute fracture or foca l intraosseous abnormality. IMPRESSION: Satisfactory appearance of the right knee post prosthesis placement [facility] Benjamin Larry , 09/09/2024 3:24 PM
[2024-09-09] MEDS: droPERidol 5 MG/2 ML VIAL IVP ONE (15:59)
[2024-09-09] MEDS ORDERED: NAPROXEN 250 MG TAB PO PRN (16:46)
[2024-09-09] MEDS: MORPHINE SULFATE 2 MG/ML SYRINGE IVP PRN (17:01)
[2024-09-09] MEDS: CYCLOBENZAPRINE 10 MG TAB PO PRN (18:00)
[2024-09-09] MEDS: HYDROcodone/APAP 7.5-325MG 1 EACH TAB PO PRN (18:01)
[2024-09-09] MEDS: ASPIRIN 81 MG PO SCH (20:19)
[2024-09-09] MEDS: EZETIMIBE 10 MG TAB PO SCH (20:20)
[2024-09-09] MEDS: ATORVASTATIN 20 MG TAB PO SCH (20:20)
[2024-09-09] MEDS: HYDROcodone/APAP 10-325MG 1 EACH TAB PO SCH (20:20)
[2024-09-09] MEDS: LOSARTAN 25 MG TAB PO SCH (20:21)
[2024-09-09] MEDS: SENNOSIDES-DOCUSATE SODIUM 1 EACH TAB PO SCH (20:21)
[2024-09-09] MEDS ORDERED: NON FORMULARY DRUG (Aspirin Ec 81 MG Tablet) PO SCH (21:00)
[2024-09-09] MEDS: SODIUM CHLORIDE 5% OPHTH DROPS 15 ML BTL BOTH EYES SCH (22:39)
[2024-09-10 07:35] VITALS: BP 151/54; PULSE 59; TEMP 97.7
[2024-09-10] MEDS: MULTIVITAMINS, THERA 1 EACH TAB PO SCH (07:58)
[2024-09-10 08:41] LABS: Basophils # (A) 0.01 X 10*3/uL (0.00-0.10); Basophils % (A) 0.1 %; Eosinophils # (A) 0.01 X 10*3/uL (0.04-0.35); Eosinophils % (A) 0.1 %; HCT 42.3 % (39.6-50.0); HGB 14.5 g/dL (13.0-17.0); Lymphocytes # (A) 0.86 X 10*3/uL (0.90-5.00); Lymphocytes % (A) 6.4 %; MCH 32.5 pg (27.0-32.0); MCHC 34.3 g/dL (32.0-37.0); MCV 94.8 FL (80.0-97.0); Mean Platelet Volume 9.7 FL (9.5-12.2); Monocytes # (A) 0.84 X 10*3/uL (0.20-1.00); Monocytes % (A) 6.2 %; NRBC Per 100 WBC 0 X 10*3/uL (0.00-0.01); Neutrophils # (A) 11.69 X 10*3/uL (1.80-7.70); Neutrophils % (A) 86.7 %; Platelet Count 277 X 10*3/uL (140-440); RBC 4.46 X 10*6/uL (4.40-5.60); WBC 13.48 X 10*3/uL (4.50-10.00)
[2024-09-10] MEDS ORDERED: MULTIVITAMINS, THERA 1 EACH TAB PO SCH (09:00)
--- NOTE | 2024-09-10 09:53 | P.PN ---
Subjective Progress Note Date: 09/10/24 Principal diagnosis: Status post right total knee arthroplasty Patient evaluated at bedside today, he is resting comfortably. Patient did very well with physical therapy. Patient is tolerating a regular diet, he is urinating with no issues. Patient's pain is slightly worse, he is hoping to utilize Percocet like he did after his last procedure. Has no headaches, lightheadedness, chest pain or shortness of breath Objective - Vital Signs Vital signs: Vital Signs Temp 97.7 F 09/10/24 06:58 Pulse 59 L 09/10/24 06:58 Resp 17 09/10/24 06:58 BP 151/54 09/10/24 06:58 Pulse Ox 98 09/10/24 06:58 FiO2 Intake & Output 09/09/24 09/10/24 09/10/24 18:59 06:59 18:59 Intake Total 1901 Output Total 40 450 Balance 1861 -450 Weight 111.6 kg Intake: IV 1901 Output: Urine 450 Estimated Blood Loss 40 Other: # Voids 1 - Exam Right lower extremity: Incision is clean, dry, and intact. The foam dressing is in good condition. There is minimal soft tissue swelling and ecchymosis surrounding the medial and lateral aspects of the incision. Calf is soft, no tenderness with palpation. Plantar flexion, dorsiflexion, EHL, FHL are intact. Sensory exam to light touch throughout the extremity is intact, dorsal pedis pulses 2+. - Labs CBC & Chem 7: 09/10/24 04:03 Labs: Abnormal Lab Results - Last 24 Hours (Table) 09/10/24 Range/Units 04:03 WBC 13.48 H (4.50-10.00) X 10*3/uL MCH 32.5 H (27.0-32.0) pg Immature Gran # 0.07 H (0.00-0.04) X 10*3/uL Neutrophils # 11.69 H (1.80-7.70) X 10*3/uL Lymphocytes # 0.86 L (0.90-5.00) X 10*3/uL Eosinophils # 0.01 L (0.04-0.35) X 10*3/uL Assessment and Plan Assessment: Postoperative day #1 status post right total knee arthroplasty Plan: Pain control, plan for discharge home on Percocet 7.5 mg / 325 mg. Will also discharge with stool softener and Zofran as needed DVT prophylaxis, aspirin 325 mg daily for at least 2 weeks, will discuss further at postop visit Wound care instructions discussed, this to include showering along with icing and elevating Home PT/OT after discharge Medical recommendations appreciated Discharge planning: Patient stable for discharge home today Time with Patient: Less than 30
--- NOTE | 2024-09-10 09:57 | P.DS ---
Providers Date of admission: 09/09/2024 Expected date of discharge: 09/10/24 Attending physician: Guillermo Alvarado Consults: 09/09/24 14:23 Consult Physician Routine Consulting Provider: Alex Rushing Reason/Comments: Medical management Do you want consulting provider notified?: Yes Primary care physician: Stephen Stiles [place] Hospital Course: Date of admission: 09/09/2024 Date of discharge: 09/10/2024 Admission diagnosis: Status post right total knee arthroplasty Discharge diagnosis: Same Attending physician: Dr. Alvarado Surgical procedures: Right total knee arthroplasty Brief history: Patient is a 69-year-old male with a history of progressive primary right knee osteoarthritis. At this point patient has failed conservative treatment measures and has opted to proceed with a elective right total knee arthroplasty. Hospital course: Details of patient's surgery can be found in operative report. Patient tolerated the procedure well and was subsequently transported to orthopedic floor. Patient's orthopeidc and medical care was provided daily. Patient had daily laboratory tests performed for evaluation of overall blood counts. Patient had daily physical therapy to include strengthening range of motion as well as education with walker ambulation. Patient was treated with aspirin for their postoperative DVT prophylaxis during their inpatient stay. Mikael taylor was noted to have a relatively uneventful postoperative course. Patient reported satisfactory pain control with oral pain medications by postoperative day 0. Patient showed satisfactory progress with physical therapy. Patient moved steadily through the program and had no difficulty meeting the goals by postoperative day 1. Given patient's otherwise satisfactory course and having met physical therapy goals, plan is to discharge patient home on postoperative day 1. Discharge condition/disposition: Patient will be discharged home in stable condition. Discharge medications: Instructions are given on resumption of patient's normal daily medications per primary care recommendation, in addition patient will be prescribed Percocet 7.5 mg / 325 mg, senna S, aspirin to 25 mg, Zofran 8 mg. Discharge instructions: 1. Wound care and infection precautions, keep incision dry and covered while showering, no lotions, creams, moisturizers. No soaking, tubs, pools, hottubs. Do not scrub over the incision. 2. Weight-bear as tolerated with walker / cane until follow-up. 3. Ice and elevate when necessary. Do not exceed 20 minutes per hour with ice pack. 4. Utilize compression sleeve until seen at first follow up appointment. 5. Visiting nursing care. 6. Home physical therapy including home CPM. 7. Pain meds and anticoagulants per prescription. 8. Pain medication has potential to cause constipation. Increase oral fluid and fiber intake. Contact primary care provider if you have not had a bowel movement within 48 hours after discharge 9. No anti-inflammatory medication until discussed at first post operative visit, this including Motrin, Aleve, Mobic, Diclofenac. 10. Follow up in office at 2 weeks postop with Escobar Gore PA-C/Jose Horn 11. Follow up with your primary care doctor 7-10 days after discharge. 12. Contact [facility] with any questions, . Procedures: Right total knee arthroplasty Patient Condition at Discharge: Good Plan - Discharge Summary Discharge Rx Participant: No New Discharge Prescriptions: New ondansetron HCL [Zofran] 8 mg PO Q12HR PRN #21 tab PRN Reason: Nausea Aspirin 325 mg PO DAILY #15 tab oxyCODONE HCL/ACETAMINOPHEN [Percocet 7.5-325 mg] 1 tab PO Q6HR PRN 7 Days #28 tab PRN Reason: Pain Sennosides/Docusate Sodium [Senna-S 8.6-50 mg Tablet] 2 each PO DAILY PRN #30 tablet PRN Reason: Constipation No Action HYDROcodone/APAP 10-325MG [[place] 10-325] 1 tab PO BID Ezetimibe/Simvastatin [Vytorin 10-40 mg Tablet] 1 tab PO HS Cyclobenzaprine [Flexeril] 10 mg PO TID PRN PRN Reason: Muscle Spasm Aspirin EC [Ecotrin Low Dose] 81 mg PO HS Losartan [Cozaar] 25 mg PO HS Multivitamins, Thera [Multivitamin (formulary)] 1 tab PO DAILY Naproxen [Naprosyn] 500 mg PO BID PRN PRN Reason: Pain Sodium Chloride 5% Ophth Soln [[place]ese[place] 128] 1 drops BOTH EYES TID Discharge Medication List Ezetimibe/Simvastatin [Vytorin 10-40 mg Tablet] 1 tab PO HS 05/20/14 [History] HYDROcodone/APAP 10-325MG [[place] 10-325] 1 tab PO BID 05/20/14 [History] Aspirin EC [Ecotrin Low Dose] 81 mg PO HS 06/27/24 [History] Cyclobenzaprine [Flexeril] 10 mg PO TID PRN 06/27/24 [History] Losartan [Cozaar] 25 mg PO HS 09/05/24 [History] Multivitamins, Thera [Multivitamin (formulary)] 1 tab PO DAILY 09/05/24 [History] Naproxen [Naprosyn] 500 mg PO BID PRN 09/05/24 [History] Sodium Chloride 5% Ophth Soln [[place] 128] 1 drops BOTH EYES TID 09/05/24 [History] Aspirin 325 mg PO DAILY #15 tab 09/10/24 [Rx] Sennosides/Docusate Sodium [Senna-S 8.6-50 mg Tablet] 2 each PO DAILY PRN #30 tablet 09/10/24 [Rx] ondansetron HCL [Zofran] 8 mg PO Q12HR PRN #21 tab 09/10/24 [Rx] oxyCODONE HCL/ACETAMINOPHEN [Percocet 7.5-325 mg] 1 tab PO Q6HR PRN 7 Days #28 tab 09/10/24 [Rx] Follow up Appointment(s)/Referral(s): [facility],Equipment [NON-STAFF] - As Needed (Call [facility] once home to arrange delivery of the Continuous Passive Motion (CPM) machine. ) Ludwin Gore PAC [PHYSICIAN DEPUTY BUILDING GUARD] - 2 Weeks Activity/Diet/Wound Care/Special Instructions: Orthopedic Discharge Instructions: 1. Wound care and infection precautions, keep incision dry and covered while showering, no lotions, creams, moisturizers. No soaking, pools, hot tubs. Do not scrub over incision. 2. Weight-bear as tolerated with walker / cane until follow-up. 3. Ice and elevate when necessary. Do not exceed 20 minutes per hour with ice pack. 4. Utilize compression sleeve until seen at first follow up appointment. 5. Pain meds and anticoagulants per prescription. 6. Pain medication has potential to cause constipation. Increase oral fluid and fiber intake. Contact primary care provider if you have not had a bowel movement within 48 hours after discharge. 7. No anti-inflammatory medication until discussed at first post operative visit, this including Motrin, Aleve, Mobic, Diclofenac. 8. Follow up in office at 2 weeks postop with Escobar Gore PA-C/Jose Go PA-C 9. Follow up with your primary care doctor 7-10 days after discharge. 10. Contact [facility] with any questions, . Wound care instructions: 1. Okay to remove surgical dressing as of 09/18/2024 2. Okay to shower directly over the incision after removal of dressing Discharge Disposition: HOME WITH HOME HEALTH SERVICES
[2024-09-10 09:58] VITALS: RESP 16
--- NOTE | 2024-09-10 12:13 | P.CONS ---
History of Present Illness - Reason for Consult Consult date: 09/10/24 - History of Present Illness This is a 69-year-old male with medical history significant for chest pain, coronary artery disease with prior cardiac catheterization, hyperlipidemia, hypertension, sleep apnea with BiPAP use, occasional smoking history, marijuana use. Patient comes in for a scheduled right knee total arthroplasty. He is evaluated today postoperative day #1 mild leukocytosis of 13.48 which is expected postoperative. He continues on losartan daily which has been resumed he is mildly hypotensive today. He will be evaluated by physical therapy and Occupational Therapy for discharge planning. REVIEW OF SYSTEMS: CONSTITUTIONAL: No fever, no malaise, no fatigue. HEENT: No recent visual problems or hearing problems. Denied any sore throat. CARDIOVASCULAR: No chest pain, orthopnea, PND, no palpitations, no syncope. PULMONARY: No shortness of breath, no cough, no hemoptysis. GASTROINTESTINAL: No diarrhea, no nausea, no vomiting, no abdominal pain. NEUROLOGICAL: No headaches, no weakness, no numbness. HEMATOLOGICAL: Denies any bleeding or petechiae. GENITOURINARY: Denies any burning micturition, frequency, or urgency. MUSCULOSKELETAL/RHEUMATOLOGICAL: Denies any joint pain, swelling, or any muscle pain. ENDOCRINE: Denies any polyuria or polydipsia. The rest of the 14-point review of systems is negative. PHYSICAL EXAMINATION: GENERAL: The patient is alert and oriented x3, not in any acute distress. Well developed, well nourished. HEENT: Pupils are round and equally reacting to light. EOMI. No scleral icterus. No conjunctival pallor. Normocephalic, atraumatic. No pharyngeal erythema. No thyromegaly. CARDIOVASCULAR: S1 and S2 present. No murmurs, rubs, or gallops. PULMONARY: Chest is clear to auscultation, no wheezing or crackles. ABDOMEN: Soft, nontender, nondistended, normoactive bowel sounds. No palpable organomegaly. MUSCULOSKELETAL: No joint swelling or deformity. EXTREMITIES: No cyanosis, clubbing, or pedal edema. NEUROLOGICAL: Gross neurological examination did not reveal any focal deficits. SKIN: No rashes. Assessment and plan Osteoarthritis postoperative day #1 total right knee arthroplasty elective procedure Leukocytosis secondary to above expected postprocedure Coronary artery disease with prior cardiac catheterization History of hyperlipidemia History of hypertension resumed on losartan History of sleep apnea with BiPAP use Occasional smoking history Marijuana use GI prophylaxis DVT prophylaxis as per primary Full code Patient will be continued on all appropriate home medications which have been resumed at this time. Patient will evaluate physical therapy and Occupational Therapy. Discharge recommendations forthcoming. Thank you currently for this consultation The impression and plan of care has been dictated by Esperanza Whaley Nurse Practitioner as directed. Dr. Tod MD I have performed a history and physical examination and medical decision making of this patient, discussed the same with the dictator, and agree with the dictators assessment and plan as written, documented as a scribe. Based on total visit time, I have performed more than 50% of this visit. Past Medical History Past Medical History: Chest Pain / Angina, Hyperlipidemia, Hypertension, Osteoarthritis (OA), Skin Disorder, Sleep Apnea/CPAP/BIPAP Additional Past Medical History / Comment(s): hx colon polyps, USES BIPAP, ROSACEA,Covid infection Jul 2024-mild cold symptomsmild dilated aorta History of Any Multi-Drug Resistant Organisms: None Reported Past Surgical History: Heart Catheterization, Joint Replacement, Orthopedic Surgery Additional Past Surgical History / Comment(s): RT knee surg., right hand surg- DISTAL MIDDLE FINGER AMPUTATION, COLONOSCOPY,lt total knee,heartcath x2 Past Anesthesia/Blood Transfusion Reactions: No Reported Reaction Additional Past Anesthesia/Blood Transfusion Reaction / Comm: no hx blood transfusion Past Psychological History: No Psychological Hx Reported Smoking Status: Current some day smoker Past Alcohol Use History: Occasional Additional Past Alcohol Use History / Comment(s): HAS A CIGAR OCCAS-FOR PAST 5-6 YEARS Past Drug Use History: Marijuana Additional Drug Use History / Comment(s): USES MARIJUANA 2-3 TIMES WEEKLY- - Past Family History Father Family Medical History: Cancer, Deep Vein Thrombosis (DVT) Sister(s) Family Medical History: Cancer Brother(s) Family Medical History: Cancer Medications and Allergies Home Medications Medication Instructions Recorded Confirmed Type Ezetimibe/Simvastatin [Vytorin 1 tab PO HS 05/20/14 09/09/24 History 10-40 mg Tablet] HYDROcodone/APAP 10-325MG [[place] 1 tab PO BID 05/20/14 09/09/24 History 10-325] Aspirin EC [Ecotrin Low Dose] 81 mg PO HS 06/27/24 09/05/24 History Cyclobenzaprine [Flexeril] 10 mg PO TID PRN 06/27/24 09/09/24 History Losartan [Cozaar] 25 mg PO HS 09/05/24 09/09/24 History Multivitamins, Thera [Multivitamin 1 tab PO DAILY 09/05/24 09/05/24 History (formulary)] Naproxen [Naprosyn] 500 mg PO BID PRN 09/05/24 09/05/24 History Sodium Chloride 5% Ophth Soln 1 drops BOTH EYES TID 09/05/24 09/09/24 History [Desean 128] Allergies Allergy/AdvReac Type Severity Reaction Status Date / Time hydromorphone [From Dilaudid] AdvReac eyes Verified 09/09/24 11:24 rolled back in head,severe b/p drop,nausea Physical Exam Vitals: Vital Signs Temp Pulse Resp BP BP Pulse Ox 09/10/24 06:58 97.7 F 59 L 17 151/54 98 09/10/24 00:39 97.4 F L 61 18 130/68 96 09/09/24 20:38 97.4 F L 72 17 125/69 95 09/09/24 17:06 97.5 F L 72 17 164/75 97 09/09/24 17:03 97.5 F L 72 17 164/75 97 09/09/24 16:30 67 16 142/70 98 09/09/24 16:15 62 16 140/69 98 09/09/24 16:00 57 L 16 141/73 98 09/09/24 15:45 55 L 16 138/61 98 09/09/24 15:30 54 L 16 128/58 97 09/09/24 15:15 53 L 16 129/70 97 09/09/24 15:00 54 L 16 129/69 99 09/09/24 14:45 54 L 16 121/63 98 09/09/24 14:31 97.2 F L 58 L 16 114/71 100 09/09/24 12:22 65 16 111/59 97 09/09/24 11:38 97.6 F 60 22 97 Intake and Output 09/09/24 09/10/24 09/10/24 22:59 06:59 14:59 Output Total 450 Balance -450 Output: Urine 450 Other: # Voids 1 Weight 111.6 kg Results CBC & Chem 7: 09/10/24 04:03 Labs: Abnormal Lab Results - Last 24 Hours (Table) 09/10/24 Range/Units 04:03 WBC 13.48 H (4.50-10.00) X 10*3/uL MCH 32.5 H (27.0-32.0) pg Immature Gran # 0.07 H (0.00-0.04) X 10*3/uL Neutrophils # 11.69 H (1.80-7.70) X 10*3/uL Lymphocytes # 0.86 L (0.90-5.00) X 10*3/uL Eosinophils # 0.01 L (0.04-0.35) X 10*3/uL
== END 2024-09-10 13:38 | disposition home health service (06) ==
LOC: OR 10:49 → 4SSUR 14:31 → OR 09-10 13:38
PROVIDERS: ATTEND Orthopaedic Surgery
DX: M17.11 Unilateral primary osteoarthritis, right knee (principal); I10 Essential (primary) hypertension; I25.10 Atherosclerotic heart disease of native coronary artery without angina pectoris; G47.30 Sleep apnea, unspecified; E78.5 Hyperlipidemia, unspecified; D72.829 Elevated white blood cell count, unspecified; F12.90 Cannabis use, unspecified, uncomplicated; F17.200 Nicotine dependence, unspecified, uncomplicated; F10.90 Alcohol use, unspecified, uncomplicated; Z86.16 Personal history of COVID-19; Z88.5 Allergy status to narcotic agent; Z86.0100 Personal history of colon polyps, unspecified; Z79.82 Long term (current) use of aspirin; Z79.899 Other long term (current) drug therapy
CPT/HCPCS: 73560; 27447; J2250; J0690 ×2; J2405; J3010; J2270; J2795; J1790; 64448; 64999; 85025